=== PATIENT | female | born 1940 | race Caucasian/White ===

== ENCOUNTER 2018-06-07 17:18 | Inpatient (IN) | payer OTHER ==
[~2018-06-07] VITALS: Ht 162.6 cm; Wt 64.0 kg
[~2018-06-07 17:18] MED LIST: ACETAMINOPHEN325 M1 PO; ASPIR 8181 MG PO; ATENOLOL50 MG PO; BUPROPION XL150 MG PO; CLOPIDOGREL75 MG PO; FAMOTIDINE20 MG PO; FLUOXETINE HCL20 M1 PO; GEMFIBROZIL600 MG PO; HYDROCHLOROTH12.5 M1 PO; HYDROCHLOROTHIA25 MG PO; MULTIVITAMINS1 EAC7 PO; NAMENDA XR PO; NAMENDA10 MG PO; PANTOPRAZOLE SO40 MG PO; PRAVASTATIN SOD40 MG PO; RIVASTIGMINE PATCH; SIMVASTATIN20 MG PO; Tylenol PO; Vit B 12 PO
[2018-06-07] MEDS ORDERED: SODIUM CHLORIDE 0.9% 1000ML 1,000 ML IV ONE ×2 (18:45→19:45)
[2018-06-07 18:51] LABS: BASOPHILS # (AUTO) 0.1 (0.0-0.1); BASOPHILS % 0.2 % (0.0-1.0); HEMATOCRIT 39.8 % (34.2-44.1); HEMOGLOBIN 12.5 g/dL (12.0-16.0); LYMPHOCYTES # (AUTO) 1.2 (1.0-3.2); LYMPHOCYTES % 5.1 % (18.0-39.1); MEAN CORPUSCULAR HEMOGLOBIN 26.1 pg (28-32); MEAN CORPUSCULAR HGB CONC 31.4 g/dL (31-35); MEAN CORPUSCULAR VOLUME 83.1 fL (81-99); MONOCYTES % 8.4 % (4.4-11.3); NEUTROPHILS # (AUTO) 20.3 (2.1-6.9); NEUTROPHILS % 84.6 % (38.7-80.0); PLATELET COUNT 260 x10e3/uL (140-360); RED BLOOD COUNT 4.79 x10e6/uL (3.6-5.1); RED CELL DISTRIBUTION WIDTH 16.6 % (11.7-14.4)
[2018-06-07 19:06] LABS: ALBUMIN 3.3 g/dL (3.5-5.0); ALBUMIN/GLOBULIN RATIO 0.6 (0.8-2.0); ANION GAP 20.1 mmol/L (8-16); CALCIUM 9.5 mg/dL (8.4-10.2); CREATININE, SERUM 1.13 mg/dL (0.57-1.11); POTASSIUM 4.1 mmol/L (3.5-5.1)
[2018-06-07] MEDS ORDERED: CEFTRIAXONE SOD 1 GM VIAL IM ONE (20:30)
[2018-06-07 21:00] LABS: BAND NEUTROPHILS % (MANUAL) 3 %; LYMPHOCYTES % (MANUAL) 6 % (19-48); MONOCYTES % (MANUAL) 5 % (3.4-9.0); NEUTROPHILS % (MANUAL) 86 % (40-74)
[2018-06-07 21:01] LABS: PLATELET ESTIMATE ADEQUATE; PLATELET MORPHOLOGY COMMENT NORMAL; RBC MORPHOLOGY COMMENT NORMAL
[2018-06-07] MEDS ORDERED: ALENDRONATE SOD70 MG PO (21:07)
[2018-06-07 21:12] LABS: BILIRUBIN,URINE NEGATIVE (NEGATIVE); CLARITY,URINE CLOUDY (CLEAR); COLOR,URINE YELLOW (YELLOW); KETONES,URINE NEGATIVE (NEGATIVE); LEUKOCYTE ESTERASE ,URINE 2+ (NEGATIVE); NITRITE,URINE POSITIVE (NEGATIVE); PROTEIN,URINE DIPSTICK 1+ (NEGATIVE); URINE UROBILINOGEN 0.2 mg/dL (0.2 - 1)
--- NOTE | 2018-06-07 21:21 | Diagnostic Imaging Report ---
CHEST SINGLE (PORTABLE), 06/07/2018 8:53 PM Technique: CHEST SINGLE (PORTABLE) Comparison: 09/02/2017 Clinical history: Weakness, nausea vomiting Findings: Stable prominent cardiomediastinal silhouette. No consolidation or edema. No effusion or pneumothorax. Scoliotic curvature of the spine. Impression: 1. Lines/Tubes: None 2. No acute abnormality. Signed by: Dr Sherri Chin MD on 06/07/2018 9:18 PM
[2018-06-07 21:32] LABS: WBC,URINE (MAN) >50 /HPF (0-5)
[2018-06-07 21:33] LABS: BACTERIA,URINE MANY /HPF; RBC,URINE 0-5 /HPF (0-5)
[2018-06-07 21:34] LABS: EPITHELIAL CELLS,URINE RARE /LPF
[2018-06-07] MEDS ORDERED: ACETAMINOPHEN 325 MG TAB PO PRN (21:45)
[2018-06-07 22:03] LABS: CREATINE KINASE MB 0.5 ng/mL (0-5.0)
[2018-06-07] MEDS: SODIUM CHLORIDE 0.9% 1000ML 1,000 ML IV SCH (22:12)
[2018-06-07] MEDS ORDERED: ACETAMINOPHEN 1000 MG/100 ML 100 ML IV ONE (22:23)
[2018-06-07] MEDS: ONDANSETRON HCL INJ 2 MG/ML VIAL IV PRN (22:25)
[2018-06-08] MEDS ORDERED: ACETAMINOPHEN 1000 MG/100 ML IV SCH
[2018-06-08 03:42] LABS: CREATINE KINASE MB 1.7 ng/mL (0-5.0)
[2018-06-08] MEDS ORDERED: ACETAMINOPHEN 1000 MG/100 ML IV PRN (06:00)
--- NOTE | 2018-06-08 06:08 | Diagnostic Imaging Report ---
CHEST SINGLE (PORTABLE), 06/08/2018 7:00 AM Technique: CHEST SINGLE (PORTABLE) Comparison: Previous day Clinical history: Weakness Findings: Stable prominent cardiomediastinal silhouette. No consolidation or edema. No effusion or pneumothorax. Scoliotic curvature of the spine. Impression: 1. Lines/Tubes: None 2. No acute abnormality. Signed by: Dr Sherri Chin MD on 06/08/2018 6:04 AM
[2018-06-08 06:09] LABS: BASOPHILS % 0.1 % (0.0-1.0); HEMATOCRIT 31.6 % (34.2-44.1); LYMPHOCYTES # (AUTO) 1.5 (1.0-3.2); LYMPHOCYTES % 6.6 % (18.0-39.1); MEAN CORPUSCULAR HEMOGLOBIN 26.4 pg (28-32); MEAN CORPUSCULAR HGB CONC 31.6 g/dL (31-35); MEAN CORPUSCULAR VOLUME 83.4 fL (81-99); MONOCYTES # (AUTO) 1.7 (0.2-0.8); MONOCYTES % 7.7 % (4.4-11.3); NEUTROPHILS # (AUTO) 18.7 (2.1-6.9); NEUTROPHILS % 84.3 % (38.7-80.0); PLATELET COUNT 186 x10e3/uL (140-360); RED BLOOD COUNT 3.79 x10e6/uL (3.6-5.1); RED CELL DISTRIBUTION WIDTH 16.9 % (11.7-14.4)
[2018-06-08 06:39] LABS: ANION GAP 14.5 mmol/L (8-16); CREATININE, SERUM 1.12 mg/dL (0.57-1.11); MAGNESIUM 1.2 MG/DL (1.3-2.1); POTASSIUM 3.5 mmol/L (3.5-5.1)
[2018-06-08] MEDS: CEFTRIAXONE SOD 1 GM VIAL IV SCH ×2 (07:51→20:00)
[2018-06-08 08:05] LABS: BAND NEUTROPHILS % (MANUAL) 4 %; LYMPHOCYTES % (MANUAL) 8 % (19-48); METAMYELOCYTES % (MANUAL) 1 % (0-0); MONOCYTES % (MANUAL) 4 % (3.4-9.0); NEUTROPHILS % (MANUAL) 82 % (40-74)
[2018-06-08 08:07] LABS: PLATELET ESTIMATE ADEQUATE; PLATELET MORPHOLOGY COMMENT NORMAL; RBC MORPHOLOGY COMMENT NORMAL
[2018-06-08] MEDS ORDERED: ASPIRIN 81 MG CHEW TAB PO ONE (08:30)
[2018-06-08] MEDS: SODIUM CHLORIDE 0.9% 1000ML 1,000 ML IV SCH (10:44)
[2018-06-08 11:14] LABS: CREATINE KINASE MB 2.8 ng/mL (0-5.0)
[2018-06-08] MEDS ORDERED: MAGNESIUM SULFATE 2GM/50ML IV ONE (13:30)
[2018-06-08] MEDS ORDERED: MAGNESIUM SULFATE 2GM/50ML 50 ML IV ONE (13:45)
--- NOTE | 2018-06-08 15:13 | Diagnostic Imaging Report ---
EXAMINATION: CT of the abdomen and pelvis without contrast. TECHNIQUE: Spiral CT images of the abdomen and pelvis were performed from the lung bases to the lesser trochanters. No intravenous contrast was given per physician's request. Coronal and sagittal reformatted images were obtained. COMPARISON: None. CLINICAL HISTORY:UTI, urosepsis DISCUSSION: ABSENCE OF INTRAVENOUS CONTRAST DECREASES SENSITIVITY FOR DETECTION OF FOCAL LESIONS AND VASCULAR PATHOLOGY. ABDOMEN/PELVIS: LOWER THORAX: Minimal right lower lobe atelectatic changes. Atherosclerotic calcification of the thoracic aorta. Small hiatal hernia. HEPATOBILIARY: No focal hepatic lesions. No intra or extrahepatic biliary ductal dilation. GALLBLADDER: No radio-opaque stones or sludge. No wall thickening. SPLEEN: No splenomegaly. PANCREAS: No focal masses or ductal dilatation. Moderate fatty replacement, predominantly involving the neck and head ADRENALS: Mild thickening of bilateral adrenal glands. No focal lesion. KIDNEYS/URETERS: No renal or ureteral calculi, hydronephrosis or obstruction. Mild bilateral perinephric stranding. No contour abnormalities. PELVIC ORGANS/BLADDER: Bladder is unremarkable. Uterus is absent. No adnexal masses. Multiple pelvic phleboliths. PERITONEUM/RETROPERITONEUM: No free air or fluid. LYMPH NODES: Mildly enlarged portacaval lymph node, which measures approximately 1.2 cm in short axis (series 3, image 48). Mildly prominent subcentimeter gastrohepatic ligament node (series 3, image 36). Several mildly prominent, although subcentimeter lymph nodes are noted in the peripancreatic region (example series 3, image 55. No retroperitoneal, pelvic or inguinal adenopathy. VESSELS: Atherosclerotic calcification of the abdominal aorta and iliac vessels. GI TRACT: No bowel dilation or evidence of obstruction. No pericolonic inflammatory changes. Descending and sigmoid colon diverticulosis, without diverticulitis. Greater portion of the small bowel is located in the right abdomen, suggesting malrotation. BONES AND SOFT TISSUES: No aggressive lytic lesions. Marked S-shaped scoliosis of the thoracolumbar spine, with associated degenerative changes. No lytic lesions. Bilateral gluteal region calcified injection granulomas. IMPRESSION: 1. No renal or ureteral calculi, hydronephrosis or obstruction. Mild bilateral perinephric stranding, which is nonspecific. Unable to evaluate for pyelonephritis given the lack of intravenous contrast. 2. Bladder has an unremarkable noncontrast appearance. 3. Mildly enlarged portacaval lymph node, which is nonspecific. There are other mildly prominent, although subcentimeter lymph nodes in the peripancreatic and gastrohepatic ligament areas. These may be reactive secondary to prior inflammation or infection. No acute peripancreatic inflammatory changes are noted. Signed by: Dr. Jhonathan Castellanos M.D. on 06/08/2018 3:10 PM
[2018-06-08 15:20] LABS: BASOPHILS # (AUTO) 0.1 (0.0-0.1); BASOPHILS % 0.4 % (0.0-1.0); EOSINOPHILS # (AUTO) 0.2 (0.0-0.4); EOSINOPHILS % 0.8 % (0.0-6.0); HEMATOCRIT 30.7 % (34.2-44.1); HEMOGLOBIN 9.5 g/dL (12.0-16.0); LYMPHOCYTES # (AUTO) 1.9 (1.0-3.2); LYMPHOCYTES % 10.5 % (18.0-39.1); MEAN CORPUSCULAR HEMOGLOBIN 26.2 pg (28-32); MEAN CORPUSCULAR HGB CONC 30.9 g/dL (31-35); MEAN CORPUSCULAR VOLUME 84.8 fL (81-99); MONOCYTES # (AUTO) 1.4 (0.2-0.8); NEUTROPHILS # (AUTO) 14.3 (2.1-6.9); NEUTROPHILS % 79.7 % (38.7-80.0); PLATELET COUNT 149 x10e3/uL (140-360); RED BLOOD COUNT 3.62 x10e6/uL (3.6-5.1); RED CELL DISTRIBUTION WIDTH 17.1 % (11.7-14.4)
[2018-06-08 15:23] VITALS: BP 138/78
[2018-06-08 15:36] VITALS: BP 138/78
[2018-06-08 15:40] LABS: ALBUMIN 2.3 g/dL (3.5-5.0); ALBUMIN/GLOBULIN RATIO 0.6 (0.8-2.0); ANION GAP 12.2 mmol/L (8-16); CALCIUM 7.8 mg/dL (8.4-10.2); CREATININE, SERUM 1.06 mg/dL (0.57-1.11); POTASSIUM 3.2 mmol/L (3.5-5.1)
[2018-06-08 15:55] LABS: ANISOCYTOSIS SLIGHT; LYMPHOCYTES % (MANUAL) 13 % (19-48); MONOCYTES % (MANUAL) 8 % (3.4-9.0); NEUTROPHILS % (MANUAL) 79 % (40-74); PLATELET ESTIMATE ADEQUATE; PLATELET MORPHOLOGY COMMENT NORMAL; RBC MORPHOLOGY COMMENT NORMAL
[2018-06-08 16:00] VITALS: BP 139/73
[2018-06-08] MEDS: MEMANTINE 10 MG TAB PO SCH (17:00)
[2018-06-08 20:00] VITALS: BP 124/60
[2018-06-09] VITALS (8 sets, daily range): BP systolic 152–187; BP diastolic 69–98
[2018-06-09] MEDS: ONDANSETRON HCL INJ 2 MG/ML VIAL IV PRN ×4 (01:42→18:41)
[2018-06-09 05:07] LABS: BASOPHILS # (AUTO) 0.1 (0.0-0.1); BASOPHILS % 0.5 % (0.0-1.0); EOSINOPHILS # (AUTO) 0.2 (0.0-0.4); EOSINOPHILS % 1.4 % (0.0-6.0); HEMATOCRIT 32.7 % (34.2-44.1); HEMOGLOBIN 10.4 g/dL (12.0-16.0); LYMPHOCYTES # (AUTO) 1.2 (1.0-3.2); LYMPHOCYTES % 7.4 % (18.0-39.1); MEAN CORPUSCULAR HEMOGLOBIN 26.1 pg (28-32); MEAN CORPUSCULAR HGB CONC 31.8 g/dL (31-35); MEAN CORPUSCULAR VOLUME 82.2 fL (81-99); MONOCYTES # (AUTO) 1.3 (0.2-0.8); MONOCYTES % 8.4 % (4.4-11.3); NEUTROPHILS # (AUTO) 12.7 (2.1-6.9); NEUTROPHILS % 81.5 % (38.7-80.0); PLATELET COUNT 167 x10e3/uL (140-360); RED BLOOD COUNT 3.98 x10e6/uL (3.6-5.1)
[2018-06-09 05:25] LABS: ANION GAP 14.3 mmol/L (8-16); BLOOD UREA NITROGEN 21 mg/dL (7-26); BUN/CREATININE RATIO 25 (6-25); CALCIUM 8.2 mg/dL (8.4-10.2); CARBON DIOXIDE 22 mmol/L (22-29); CHLORIDE 106 mmol/L (98-107); CREATININE, SERUM 0.83 mg/dL (0.57-1.11); EST GLOMERULAR FILTRATION RATE > 60 ML/MIN (60-); GLUCOSE 121 mg/dL (74-118); POTASSIUM 3.3 mmol/L (3.5-5.1); SODIUM 139 mmol/L (136-145)
[2018-06-09 05:30] LABS: MAGNESIUM 1.4 MG/DL (1.3-2.1)
[2018-06-09 05:56] LABS: THYROID STIMULATING HORMONE 1.069 uIU/mL (0.350-4.940)
[2018-06-09 08:00] LABS: FOLATE 16.4 ng/mL (7.0-15.4)
[2018-06-09] MEDS: CEFTRIAXONE SOD 1 GM VIAL IV SCH ×2 (08:00→19:53)
[2018-06-09] MEDS: SODIUM CHLORIDE 0.9% 1000ML 1,000 ML IV SCH (08:49)
[2018-06-09] MEDS: CLOPIDOGREL BISULFATE 75 MG TAB PO SCH (09:00)
[2018-06-09] MEDS: PANTOPRAZOLE SOD 40 MG TABEC PO SCH (09:00)
[2018-06-09] MEDS: FLUOXETINE HCL 20 MG CAP PO SCH (09:00)
[2018-06-09] MEDS: MEMANTINE 10 MG TAB PO SCH ×2 (09:00→17:00)
[2018-06-09] MEDS: FAMOTIDINE 20 MG/2 ML VIAL IV SCH ×2 (10:30→16:34)
[2018-06-09] MEDS ORDERED: MAGNESIUM SULFATE 2GM/50ML IV ONE (10:30)
[2018-06-09] MEDS ORDERED: SOD CHL 0.45%/POT CHL 20MEQ 1,000 ML IV SCH (10:30)
[2018-06-09] MEDS: ACETAMINOPHEN 325 MG TAB PO PRN ×2 (10:34→16:34)
[2018-06-09] MEDS: MAGNESIUM/ALUMINUM/SIMETHICONE 30 ML UDC PO PRN ×2 (10:39→18:41)
[2018-06-09] MEDS ORDERED: MAGNESIUM SULFATE 2GM/50ML 50 ML IV ONE (10:45)
[2018-06-09] MEDS ORDERED: ATENOLOL 50 MG TAB PO ONE (10:50)
--- NOTE | 2018-06-09 11:03 | History and Physical ---
Patient is admitted on June 08, 2018. CHIEF COMPLAINT: Nausea, vomiting, abdominal pain, fever. HISTORY: Patient is a 78-year-old female came in with some confusion. The patient has nausea and vomiting for the past few days prior to her presentation. She does have urinary tract infection. Patient's blood pressure was low. She did have a temperature of 102. The patient is otherwise stable. The urinalysis is showing that she has 1+ blood, positive nitrite, 2+ leukocyte esterase, and WBC of greater than 50 along with many bacteria. Her white cell count was also elevated at 23.9 as well. Patient admitted, Rocephin is initiated. The patient was, however, stable. PAST MEDICAL HISTORY: Osteoarthritis. Reflux, hypertension, osteoporosis, depression, anxiety disorder, mild dementia, dyslipidemia. PAST SURGICAL HISTORY: 1. Left ankle surgery. 2. Hysterectomy. SOCIAL HISTORY: Patient lives at home with her family. ALLERGIES: TO NO KNOWN ALLERGY. HOME MEDICATIONS: List reviewed. REVIEW OF SYSTEMS: As mentioned above. PHYSICAL EXAMINATION: VITAL SIGNS: Temperature is 99, blood pressure 174/79, pulse rate 86, respirations 18. GENERAL: The patient is not in acute distress, she is awake. HEENT: Normocephalic, atraumatic. Sclerae anicteric. NECK: Supple grossly. PULMONARY: Diminished breath sounds. CARDIOVASCULAR: S1, S2. Regular rate and rhythm. ABDOMEN: Soft, nontender, non-distention. EXTREMITIES: No cyanosis or edema. NEURO: No gross focal deficit, although the patient is confused. LABORATORY: WBC is 23.9, hemoglobin is 12.5, hematocrit 39.8, platelets is 260,000. Sodium is 138, potassium 3.2, chloride 109, bicarb is 20, BUN is 23, creatinine 1.0, glucose is 108. TSH is 1.06. Folate is 16, B12 is greater than 2000. Liver enzymes unremarkable. Magnesium is 1.4. IMPRESSION: 1. Sepsis without shock. Patient's blood pressure responded to intravenous bolus. 2. Altered mental status secondary to the above. This is consistent with urinary tract infection with infected encephalopathy. 3. Baseline dementia. 4. Fever and leukocytosis secondary to the above. PLAN: Continue with IV antibiotics. Supportive measures. Home medications. Replace electrolytes. Check blood culture and urine culture. Job#: [id number]
[2018-06-10] VITALS (7 sets, daily range): BP systolic 136–177; BP diastolic 82–113
[2018-06-10 04:49] LABS: BASOPHILS # (AUTO) 0.1 (0.0-0.1); BASOPHILS % 0.4 % (0.0-1.0); EOSINOPHILS # (AUTO) 0.1 (0.0-0.4); EOSINOPHILS % 0.4 % (0.0-6.0); HEMATOCRIT 33.3 % (34.2-44.1); HEMOGLOBIN 10.7 g/dL (12.0-16.0); LYMPHOCYTES # (AUTO) 1.2 (1.0-3.2); LYMPHOCYTES % 9.7 % (18.0-39.1); MEAN CORPUSCULAR HGB CONC 32.1 g/dL (31-35); MEAN CORPUSCULAR VOLUME 80.8 fL (81-99); MONOCYTES # (AUTO) 1.1 (0.2-0.8); MONOCYTES % 9.2 % (4.4-11.3); NEUTROPHILS # (AUTO) 9.7 (2.1-6.9); NEUTROPHILS % 79.8 % (38.7-80.0); PLATELET COUNT 188 x10e3/uL (140-360); RED BLOOD COUNT 4.12 x10e6/uL (3.6-5.1)
[2018-06-10 05:07] LABS: ANION GAP 15.3 mmol/L (8-16); BLOOD UREA NITROGEN 14 mg/dL (7-26); BUN/CREATININE RATIO 19 (6-25); CALCIUM 8.4 mg/dL (8.4-10.2); CARBON DIOXIDE 24 mmol/L (22-29); CHLORIDE 100 mmol/L (98-107); CREATININE, SERUM 0.75 mg/dL (0.57-1.11); EST GLOMERULAR FILTRATION RATE > 60 ML/MIN (60-); GLUCOSE 109 mg/dL (74-118); POTASSIUM 3.3 mmol/L (3.5-5.1); SODIUM 136 mmol/L (136-145)
[2018-06-10] MEDS: CEFTRIAXONE SOD 1 GM VIAL IV SCH ×2 (08:54→21:05)
[2018-06-10] MEDS: FAMOTIDINE 20 MG/2 ML VIAL IV SCH (08:54)
[2018-06-10] MEDS: CLOPIDOGREL BISULFATE 75 MG TAB PO SCH (08:54)
[2018-06-10] MEDS: FLUOXETINE HCL 20 MG CAP PO SCH (08:54)
[2018-06-10] MEDS: MEMANTINE 10 MG TAB PO SCH ×2 (08:54→17:00)
[2018-06-10] MEDS: PANTOPRAZOLE SOD 40 MG TABEC PO SCH (08:54)
[2018-06-10] MEDS: ATENOLOL 50 MG TAB PO SCH (08:55)
[2018-06-10] MEDS ORDERED: POTASSIUM CHLORIDE 10 MEQ TABCR PO NR (10:00)
[2018-06-10] MEDS: AMLODIPINE BESYLATE 5 MG TAB PO SCH (13:28)
[2018-06-10] MEDS: FAMOTIDINE 20 MG TAB PO SCH (17:00)
[2018-06-11] VITALS (8 sets, daily range): BP systolic 138–164; BP diastolic 68–97
[2018-06-11 05:05] LABS: BASOPHILS # (AUTO) 0.1 (0.0-0.1); BASOPHILS % 0.6 % (0.0-1.0); EOSINOPHILS # (AUTO) 0.2 (0.0-0.4); EOSINOPHILS % 2.1 % (0.0-6.0); HEMATOCRIT 32.7 % (34.2-44.1); HEMOGLOBIN 10.5 g/dL (12.0-16.0); LYMPHOCYTES # (AUTO) 2.3 (1.0-3.2); LYMPHOCYTES % 25.7 % (18.0-39.1); MEAN CORPUSCULAR HEMOGLOBIN 25.9 pg (28-32); MEAN CORPUSCULAR HGB CONC 32.1 g/dL (31-35); MEAN CORPUSCULAR VOLUME 80.7 fL (81-99); MONOCYTES # (AUTO) 1.5 (0.2-0.8); MONOCYTES % 16.6 % (4.4-11.3); NEUTROPHILS # (AUTO) 4.8 (2.1-6.9); NEUTROPHILS % 54.3 % (38.7-80.0); PLATELET COUNT 216 x10e3/uL (140-360); RED BLOOD COUNT 4.05 x10e6/uL (3.6-5.1); RED CELL DISTRIBUTION WIDTH 16.9 % (11.7-14.4)
[2018-06-11 05:35] LABS: ANION GAP 13.5 mmol/L (8-16); BLOOD UREA NITROGEN 21 mg/dL (7-26); BUN/CREATININE RATIO 23 (6-25); CALCIUM 8.8 mg/dL (8.4-10.2); CARBON DIOXIDE 25 mmol/L (22-29); CHLORIDE 99 mmol/L (98-107); EST GLOMERULAR FILTRATION RATE > 60 ML/MIN (60-); GLUCOSE 100 mg/dL (74-118); POTASSIUM 3.5 mmol/L (3.5-5.1); SODIUM 134 mmol/L (136-145)
[2018-06-11] MEDS: AMLODIPINE BESYLATE 5 MG TAB PO SCH (05:55)
[2018-06-11] MEDS: MEMANTINE 10 MG TAB PO SCH ×2 (08:35→16:20)
[2018-06-11] MEDS: PANTOPRAZOLE SOD 40 MG TABEC PO SCH (08:35)
[2018-06-11] MEDS: FAMOTIDINE 20 MG TAB PO SCH ×2 (08:35→16:20)
[2018-06-11] MEDS: ATENOLOL 50 MG TAB PO SCH (08:35)
[2018-06-11] MEDS: CLOPIDOGREL BISULFATE 75 MG TAB PO SCH (08:35)
[2018-06-11] MEDS: FLUOXETINE HCL 20 MG CAP PO SCH (08:35)
[2018-06-11] MEDS: CEFTRIAXONE SOD 1 GM VIAL IV SCH ×2 (08:35→20:15)
--- NOTE | 2018-06-11 18:34 | Diagnostic Imaging Report ---
EXAMINATION: PA and lateral views of the chest. COMPARISON: AP chest 09/02/2017 CLINICAL HISTORY: Cough, urosepsis DISCUSSION: Lines/tubes: None. Lungs: The lungs are well inflated and grossly clear. There is no evidence of pneumonia or pulmonary edema. Pleura: There is no pleural effusion or pneumothorax. Heart and mediastinum: Enlarged cardiac silhouette. Pulmonary vasculature is normal. Bones and soft tissues: No acute bony abnormalities. Degenerative changes in the thoracic spine with associated dextroscoliosis IMPRESSION: Enlarged cardiac silhouette, without acute cardiopulmonary abnormalities. Signed by: Dr. Jhonathan Castellanos M.D. on 06/11/2018 6:31 PM
[2018-06-11] MEDS: ACETAMINOPHEN 325 MG TAB PO PRN (20:31)
[2018-06-12] VITALS (7 sets, daily range): BP systolic 107–155; BP diastolic 55–81
[2018-06-12] MEDS: FLUOXETINE HCL 20 MG CAP PO SCH (08:25)
[2018-06-12] MEDS: CEFTRIAXONE SOD 1 GM VIAL IV SCH ×2 (08:25→20:23)
[2018-06-12] MEDS: FAMOTIDINE 20 MG TAB PO SCH ×2 (08:25→17:06)
[2018-06-12] MEDS: CLOPIDOGREL BISULFATE 75 MG TAB PO SCH (08:25)
[2018-06-12] MEDS: PANTOPRAZOLE SOD 40 MG TABEC PO SCH (08:25)
[2018-06-12] MEDS: ATENOLOL 50 MG TAB PO SCH (08:26)
[2018-06-12] MEDS: AMLODIPINE BESYLATE 5 MG TAB PO SCH (08:26)
[2018-06-12] MEDS: MEMANTINE 10 MG TAB PO SCH ×2 (08:26→17:06)
[2018-06-12] MEDS ORDERED: BENZONATATE 100 MG CAP PO PRN (09:45)
[2018-06-12] MEDS: LORATADINE 10 MG TAB PO SCH (11:01)
[2018-06-13] VITALS (7 sets, daily range): BP systolic 124–172; BP diastolic 58–97
[2018-06-13 04:54] LABS: BASOPHILS # (AUTO) 0.1 (0.0-0.1); BASOPHILS % 0.8 % (0.0-1.0); EOSINOPHILS # (AUTO) 0.4 (0.0-0.4); EOSINOPHILS % 3.8 % (0.0-6.0); HEMATOCRIT 33.2 % (34.2-44.1); HEMOGLOBIN 10.7 g/dL (12.0-16.0); LYMPHOCYTES # (AUTO) 2.8 (1.0-3.2); LYMPHOCYTES % 26.5 % (18.0-39.1); MEAN CORPUSCULAR HEMOGLOBIN 26.2 pg (28-32); MEAN CORPUSCULAR HGB CONC 32.2 g/dL (31-35); MEAN CORPUSCULAR VOLUME 81.2 fL (81-99); MONOCYTES # (AUTO) 1.5 (0.2-0.8); MONOCYTES % 13.9 % (4.4-11.3); NEUTROPHILS # (AUTO) 5.6 (2.1-6.9); NEUTROPHILS % 52.7 % (38.7-80.0); PLATELET COUNT 271 x10e3/uL (140-360); RED BLOOD COUNT 4.09 x10e6/uL (3.6-5.1)
[2018-06-13 05:15] LABS: ANION GAP 16.2 mmol/L (8-16); BLOOD UREA NITROGEN 19 mg/dL (7-26); BUN/CREATININE RATIO 23 (6-25); CALCIUM 9.1 mg/dL (8.4-10.2); CARBON DIOXIDE 25 mmol/L (22-29); CHLORIDE 98 mmol/L (98-107); CREATININE, SERUM 0.81 mg/dL (0.57-1.11); EST GLOMERULAR FILTRATION RATE > 60 ML/MIN (60-); GLUCOSE 91 mg/dL (74-118); POTASSIUM 3.2 mmol/L (3.5-5.1); SODIUM 136 mmol/L (136-145)
[2018-06-13 07:48] LABS: ANISOCYTOSIS SLIGHT; EOSINOPHILS % (MANUAL) 4 % (0-7); HYPOCHROMASIA SLIGHT; LYMPHOCYTES % (MANUAL) 29 % (19-48); MONOCYTES % (MANUAL) 10 % (3.4-9.0); MYELOCYTES % (MANUAL) 3 % (0-0); NEUTROPHILS % (MANUAL) 48 % (40-74); RBC MORPHOLOGY COMMENT NORMAL
[2018-06-13 07:49] LABS: PLATELET ESTIMATE ADEQUATE; PLATELET MORPHOLOGY COMMENT NORMAL
[2018-06-13] MEDS: LORATADINE 10 MG TAB PO SCH (08:12)
[2018-06-13] MEDS: FLUOXETINE HCL 20 MG CAP PO SCH (08:12)
[2018-06-13] MEDS: CLOPIDOGREL BISULFATE 75 MG TAB PO SCH (08:12)
[2018-06-13] MEDS: ATENOLOL 50 MG TAB PO SCH (08:12)
[2018-06-13] MEDS: PANTOPRAZOLE SOD 40 MG TABEC PO SCH (08:12)
[2018-06-13] MEDS: MEMANTINE 10 MG TAB PO SCH ×2 (08:12→15:48)
[2018-06-13] MEDS: AMLODIPINE BESYLATE 5 MG TAB PO SCH (08:12)
[2018-06-13] MEDS: FAMOTIDINE 20 MG TAB PO SCH ×2 (08:13→15:48)
[2018-06-13] MEDS: CEFTRIAXONE SOD 1 GM VIAL IV SCH (08:13)
[2018-06-13] MEDS ORDERED: POTASSIUM CHLORIDE 20 MEQ TAB CR PO ONE (09:45)
[2018-06-13] MEDS: CEPHALEXIN 500 MG CAP PO SCH ×3 (10:30→21:39)
[2018-06-13] MEDS: AMLODIPINE BESYLATE 10 MG TAB PO SCH (10:31)
[2018-06-14 01:03] VITALS: BP 164/83
[2018-06-14] MEDS: CEPHALEXIN 500 MG CAP PO SCH (05:47)
[2018-06-14 06:53] VITALS: BP 164/74
[2018-06-14 08:00] VITALS: BP 135/77
[2018-06-14] MEDS: FAMOTIDINE 20 MG TAB PO SCH (09:05)
[2018-06-14] MEDS: LORATADINE 10 MG TAB PO SCH (09:05)
[2018-06-14] MEDS: MEMANTINE 10 MG TAB PO SCH (09:05)
[2018-06-14] MEDS: PANTOPRAZOLE SOD 40 MG TABEC PO SCH (09:06)
[2018-06-14] MEDS: ATENOLOL 50 MG TAB PO SCH (09:06)
[2018-06-14] MEDS: CLOPIDOGREL BISULFATE 75 MG TAB PO SCH (09:06)
[2018-06-14] MEDS: AMLODIPINE BESYLATE 10 MG TAB PO SCH (09:06)
[2018-06-14] MEDS: FLUOXETINE HCL 20 MG CAP PO SCH (09:06)
[2018-06-14 12:00] VITALS: BP 118/69
--- NOTE | 2018-06-17 03:33 | Discharge Summary ---
PRIMARY CARE PHYSICIAN: Dr. Oracio Bowilng. FINAL DIAGNOSES 1. Infected encephalopathy associated with urinary tract infection, associated with bacteremia on admission. 2. Sepsis without shock. 3. Bacteremia. 4. Escherichia coli infection from urinary tract infection. SUMMARY: This 78-year-old female came in lethargic and confused. Patient had fever and leukocytosis. Patient was given antibiotics Rocephin 1 gram q.12h. and blood culture obtained. The patient did not receive urine culture prior to her antibiotics. She did however have blood culture x2 sets. The patient basically has E. coli in the blood culture. It is sensitive to multiple antibiotics. Patient placed on Rocephin twice a day. She continued with IV fluids for rehydration. Patient subsequently much improved. Her mental status much improved on day 2 after 24 hours of IV antibiotics. There was no shock. The patient continued with treatment. She did better. She was back to her baseline. The patient does have baseline dementia, mild but with progression. The patient is ambulatory with physical therapy. The family wanted to place the patient in the [facility] eventually and requested skilled facility, which has subsequently been approved by insurance. The patient will be transferred to the skilled facility and continued with oral antibiotics Keflex 500 mg 3 times a day for 5 days. Patient will continue her other usual home medication. She was stable. Leukocytosis resolved. No fever over 48 hours. Patient now able to tolerate all her diet. Other workup including complaint of dysphagia was negative. Patient was stable, discharged to skilled facility, will continue with her physical therapy and subsequent management for possible placement. Job#: [id number] BILLIE
== END 2018-06-14 12:30 | disposition home or self-care (01) | DRG 871 ==
LOC: ER 17:18 → ERHOLD 21:35 → MED/SURG2 06-08 14:33
PROVIDERS: ADMIT Internal Medicine; ATTEND Internal Medicine
DX: A41.51 Sepsis due to Escherichia coli [E. coli] (principal); G93.41 Metabolic encephalopathy; F03.90 Unspecified dementia, unspecified severity, without behavioral disturbance, psychotic disturbance, mood disturbance, and anxiety; N30.91 Cystitis, unspecified with hematuria; R11.2 Nausea with vomiting, unspecified; M19.90 Unspecified osteoarthritis, unspecified site; K21.9 Gastro-esophageal reflux disease without esophagitis; M81.0 Age-related osteoporosis without current pathological fracture; E78.5 Hyperlipidemia, unspecified
CPT/HCPCS: 36415; 71045; 71046; 74176; 80048; 80053; 81001; 82550; 82553; 82607; 82746; 83605; 83735; 84443; 84484; 85025; 87040; 87071; 87186; 87205; 93005; 97139; 99284; J0696; J2405; J7030

== ENCOUNTER 2018-11-12 14:12 | Inpatient (IN) | payer MEDICARE, OTHER ==
[~2018-11-12] VITALS: Ht 165.1 cm; Wt 63.5 kg
[~2018-11-12 14:12] MED LIST changes: +ALENDRONATE SOD70 MG PO
--- OUTSIDE RECORDS SUMMARY | 2018-11-12 14:16 | XMS REPORT | Summary of Care ---
Author Author Michelle Sarah R.N. Unknown Address Unknown Phone Unavailable Care Team Providers Care Design Engineer Products Name Role Phone MARK P.A., OTF Unavailable Unavailable BABS N.PDaiana, GODWIN Unavailable Unavailable CONOR Childs, ALDEN Unavailable Unavailable NICHO GUTIERREZ [place], [place] MUÑOZ Unavailable Unavailable NICHO Childs, LOS Warner Unavailable Sherry GUTIERREZ, Mahin Unavailable Unavailable Unavailable Unavailable Functional Status Name Dates Details Functional status health issues are not documented Status: Name Dates Details Cognitive status health issues are not documented Status: Problems Name Dates Details Gait disturbance (781.2, R26.9) Status: Active Internal hemorrhoids (455.0, K64.8) Status: Active Seborrheic keratosis (702.19, L82.1) Status: Active Tinnitus (388.30, H93.19) Status: Active Mass of left side of neck (784.2, R22.1) Status: Active Need for pneumococcal vaccination (V03.82, Z23) Status: Active Knee pain, left (719.46, M25.562) Status: Active Acute bronchitis (466.0, J20.9) Status: Active Right flank pain (789.09, R10.9) Status: Active Syncope (780.2, R55) Status: Active Sciatica of right side (724.3, M54.31) Status: Active Weakness generalized (780.79, R53.1) Status: Active Skin laceration (879.8) Status: Active Hiatal hernia (553.3, K44.9) Status: Active Frequent falls (V15.88, R29.6) Status: Active Encounter for mini-mental status examination Status: Active Depression screening (V79.0, Z13.31) Status: Active Need for influenza vaccination (V04.81, Z23) Status: Active Anemia (285.9, D64.9) Status: Active Elevated LFTs (790.6, R94.5) Status: Active Fatty liver (571.8, K76.0) Status: Active Acute left ankle pain (719.47, M25.572) Status: Active Medial malleolar fracture (824.0, S82.53XA) Status: Active Cyst, eyelid (374.84, H02.829) Status: Active Abnormal electrocardiogram (794.31, R94.31) Status: Active Osteoarthritis (715.90, M19.90) Status: Active At high risk for falls (V15.88, Z91.81) Status: Active Leg fracture, left (827.0, S82.92XA) Status: Active Advance directive discussed with patient (V65.49, Z71.89) Status: Active Antiplatelet or antithrombotic long-term use (V58.63, Z79.02) Status: Active Cataract (366.9, H26.9) Status: Active Diverticulosis (562.10, K57.90) Status: Active Epistaxis (784.7, R04.0) Status: Active Cognitive decline (294.9, R41.89) Status: Active Marital dysfunction (V61.10, Z63.0) Status: Active Cerebral infarction due to occlusion or stenosis of cerebral artery (434.91, I63.50) Status: Active Hyperlipidemia (272.4, E78.5) Status: Active Breast cancer screening (V76.10, Z12.31) Status: Active Osteopenia (733.90, M85.80) Status: Active GERD without esophagitis (530.81, K21.9) Status: Active Sepsis (038.9, A41.9) Status: Active Pneumonia (486, J18.9) Status: Active Hospital discharge follow-up (V67.59, Z09) Status: Active Acute UTI (599.0, N39.0) Status: Active MDD (major depressive disorder), single episode, mild (296.21, F32.0) Status: Active Anxiety (300.00, F41.9) Status: Active Vascular dementia (290.40, F01.50) Status: Active Leukocytosis (288.60, D72.829) Status: Active Renal insufficiency (593.9, N28.9) Status: Active Essential (primary) hypertension (401.9, I10) Status: Active Medications Name Dates Details FLUoxetine HCl - 40 MG Oral Capsule Take one (1) capsule(s) BY MOUTH daily.(total 60mg daily) Quantity: 90 PERDOMO NazALDEN * Start : 30-Jul-2013 Active Clopidogrel Bisulfate 75 MG Oral Tablet TAKE ONE TABLET BY MOUTH EVERY DAY FOR HEART ATTACK AND STROKE PREVENTION... ritesh tamayo office visit * Quantity: 90 Refills: 1 OTF SAUCEDA * Start : 17-Nov-2014 Active DME walker with seat * Quantity: 1 Refills: 0 MARK Allen.A.RICKOTF * Start : 03-Jun-2014 Active Atenolol 50 MG Oral Tablet TAKE 1/2 TABLET BY MOUTH DAILY FOR HIGH BLOOD PRESSURE AND HEART DISEASE every d ay * Quantity: 90 Refills: 0 MARK P.A.RICKOTF * Start : 29-Mar-2015 Active Pantoprazole Sodium 40 MG Oral Tablet Delayed Release Take one (1) tablet(s) by mouth daily. * Quantity: 90 Refills: 1 MARK Allen.A.RICKOTF * Start : 08-Sep-2015 Active Centrum Silver TABS TAKE 1 TABLET DAILY. * Refills: 0 Active Alendronate Sodium 70 MG Oral Tablet TAKE ONE (1) TABLET(S) BY MOUTH ONCE WEEKLY WITH WATER 30 MINUTES BEFORE FIRST F OOD, BEVERAGE OR MEDICINE OF THE DAY. * Quantity: 12 Refills: 1 MARK Allen.Suzy.RICKOTF * Start : 05-Sep-2018 Active Memantine HCl - 10 MG Oral Tablet TAKE ONE TABLET BY MOUTH TWICE A DAY * Refills: 0 Active Aspirin 81 MG TABS one daily * Refills: 0 Active Pravastatin Sodium 40 MG Oral Tablet TAKE ONE TABLET BY MOUTH AT BEDTIME. * Quantity: 90 Refills: 1 MARK Allen.Suzy.RICKOTF * Start : 01-Aug-2018 Active traMADol HCl - 50 MG Oral Tablet TAKE 1 TABLET EVERY 8 HOURS PRN * Quantity: 30 Refills: 1 BABS Mejia.PGODWIN Ahmadi * Start : 04-Jan-2017 Active FLUoxetine HCl - 20 MG Oral Capsule Take one (1) capsule(s) BY MOUTH daily. * Quantity: 30 Refills: 0 BABS Mejia.PPOOJA AhmadiA * Start : 07-Nov-2018 Active Vitamin B12 TABS 2500mg qd * Refills: 0 Active amLODIPine Besylate 10 MG Oral Tablet TAKE 1 TABLET DAILY. * Refills: 0 Active Benzonatate 100 MG Oral Capsule TAKE 1 CAPSULE BY MOUTH EVERY 6 HOURS NEEDED. * Quantity: 40 Refills: 1 Active Allergies and Adverse Reactions Name Dates Details rivastigmine (Allergy) Status: Active Past Medical History Name Dates Details History of anemia (V12.3, Z86.2) Status: Resolved History of Anxiety (300.00, F41.9) Status: Resolved History of Cardiomyopathy (425.4) Status: Resolved History of Dysthymic Disorder (V11.2) Status: Resolved History of esophageal reflux (V12.79, Z87.19) Status: Resolved History of hemorrhoids (V13.89, Z87.19) Status: Resolved History of hiatal hernia (V12.79, Z87.19) Status: Resolved History of hyperlipidemia (V12.29, Z86.39) Status: Resolved History of Tingling (782.0, R20.2) Status: Resolved Procedures Procedure Dates Details History of Tonsillectomy With Adenoidectomy Completed History of Hysterectomy Completed History of Laminectomy Cervical Completed Immunization Name Dates Details Tdap on: 30-Apr-2008 Pneumococcal polysaccharide vaccine, 23 valent on: 30-Apr-2008 Influenza on: 06-Sep-2012 Fluzone INJ Lot #: [id number] on: 08-Jul-2014 Prevnar 13 Intramuscular Suspension Lot #: [id number] on: 02-Nov-2014 Fluzone Quadrivalent 0.5 ML Intramuscular Suspension Lot #: [id number] on: 08-Sep-2015 Fluzone Quadrivalent 0.5 ML Intramuscular Suspension Lot #: [id number] on: 29-Aug-2016 Influenza on: 18-Jun-2018 Fluzone Quadrivalent 0.5 ML Intramuscular Suspension on: 20-Jun-2018 Family History Name Dates Details Family history of Hypertension (V17.49) Status: Active Social History Name Dates Details - Status: Name Dates Details Never smoker Vital Signs Date Test Result Details No Known Vitals to report Results Date Description Value Details Results not documented Plan of Care Name Dates Details Planned Observations Planned Goals not documented Planned Encounters Appointment; GODWIN BRICE NP On: 13-Nov-2018 16:00 Interventions Provided Medication Changes* FLUoxetine HCl - 20 MG Oral Capsule - Renew Instructions Name Dates Details Instructions not documented Encounters Appointment; MAHIN PAULINO M.D. Encounter Diagnosis: Problem not documented On: 09-Nov-2016 13:30 Appointment; OTF FLORES P.A. Encounter Diagnosis: Problem not documented On: 27-Nov-2016 13:00 Appointment; GODWIN BRICE NP Encounter Diagnosis: Problem not documented On: 04-Jan-2017 13:30 Appointment; BERNICE LYMAN M.D. Encounter Diagnosis: Problem not documented On: 05-Jan-2017 15:30 Appointment; BERNICE LYMAN M.D. Encounter Diagnosis: Problem not documented On: 25-Jan-2017 10:30 Appointment; BERNICE LYMAN M.D. Encounter Diagnosis: Problem not documented On: 22-Mar-2017 13:30 Appointment; OTF FLORES P.A. Encounter Diagnosis: Problem not documented On: 10-Apr-2017 15:15 Appointment; OTF FLORES P.A. Encounter Diagnosis: Problem not documented On: 05-Jun-2017 11:15 Appointment; BHAVESH PRESSLEY M.D. Encounter Diagnosis: Problem not documented On: 07-Jun-2017 11:00 Appointment; BHAVESH PRESSLEY M.D. Encounter Diagnosis: Problem not documented On: 07-Jun-2017 15:30 Appointment; LUIS MIGUEL MOSS M.D. Encounter Diagnosis: Problem not documented On: 25-Jun-2017 13:30 Appointment; GODWIN BRICE NP Encounter Diagnosis: Problem not documented On: 13-Sep-2017 9:00 Appointment; GODWIN BRICE NP Encounter Diagnosis: Problem not documented On: 03-Oct-2017 14:30 Appointment; ALDEN PERDOMO M.D. Encounter Diagnosis: Problem not documented On: 09-Oct-2017 11:00 Appointment; OTF FLORES P.A. Encounter Diagnosis: Problem not documented On: 30-Jan-2018 13:15 Appointment; ALDEN PERDOMO M.D. Encounter Diagnosis: Problem not documented On: 01-Apr-2018 13:30 Appointment; OTF FLORES P.A. Encounter Diagnosis: Problem not documented On: 04-Jul-2018 14:00 Appointment; ALDEN PERDOMO M.D. Encounter Diagnosis: Problem not documented On: 22-Jul-2018 15:00 Appointment; OTF FLORES P.A. Encounter Diagnosis: Problem not documented On: 27-Aug-2018 13:15
--- OUTSIDE RECORDS SUMMARY | 2018-11-12 14:16 | XMS REPORT ---
Author [facility] Address Unknown Phone Unavailable Care Team Providers Care Pet Sitting Name Role Phone TONI DOUGLAS Unavailable Unavailable Suzy GARCIA Unavailable Unavailable Problems This patient has no known problems. Allergies, Adverse Reactions, Alerts This patient has no known allergies or adverse reactions. Medications This patient has no known medications. Results Test Description Test Time Test Comments Text Results Atomic Results Result Comments CHEST 2 VIEWS 2018-06-11 18:29:00 [facility] [address] [place] [address] Patient Name: GERTRUDE CARR MR #: [id number] : 1940 Age/Sex: 78/F Req #: [id number] [facility] Physician: TONI DOUGLAS MD Ordered by: TONI DOUGLAS MD Report #: [id number] Location: MED/SURG2 Room/Bed: [facility] Procedure: [id number] DX/CHEST 2 VIEWS Exam Date: 06/11/18 Exam Time: 1750 REPORT STATUS: Signed EXAMINATION: PA and lateral views of the chest. COMPARISON: AP chest 09/02/2017 CLINICAL HISTORY: Cough, urosepsis DISCUSSION: Lines/tubes: None. Lungs: The lungs are well inflated and grossly clear. There is no evidence of pneumonia or pulmonary edema. Pleura: There is no pleural effusion or pneumothorax. Heart and mediastinum: Enlarged cardiac silhouette. Pulmonary vasculature is normal. Bones and soft tissues: No acute bony abnormalities. Degenerative changes in the thoracic spine with associated dextroscoliosis IMPRESSION: Enlarged cardiac silhouette, without acute cardiopulmonary abnormalities. Signed by: Dr. Mellisa Castellanos M.D. on 06/11/2018 6:31 PM Dictated By: MELLISA CASTELLANOS MD 30 Transcribed By: JOEL on 06/11/181830 COPY TO: TONI DOUGLAS MD CT ABDOMEN/PELVIS WO 2018-06-08 14:59:00 [place] [address] Patient Name: GERTRUDE CARR MR #: [id number] : 1940 Age/Sex: 78/F Req #: [id number] Adm Physician: TONI DOUGLAS MD Ordered by: TONI DOUGLAS MD Report #: [id number] Location: MED/SURG Room/Bed: [facility] Procedure: [id number] CT/CT ABDOMEN/PELVIS WO Exam Date: 06/08/18 Exam Time: 1422 REPORT STATUS: Signed EXAMINATION: CT of the abdomen and pelvis without contrast. TECHNIQUE: Spiral CT images of the abdomen and pelvis were performed from the lung bases to the lesser trochanters. No intravenous contrast was given per physician's request. Coronal and sagittal reformatted images were obtained. COMPARISON: None. CLINICAL HISTORY:UTI, urosepsis DISCUSSION: ABSENCE OF INTRAVENOUS CONTRAST DECREASES SENSITIVITY FOR DETECTION OF FOCAL LESIONS AND VASCULAR PATHOLOGY. ABDOMEN/PELVIS: LOWER THORAX: Minimal right lower lobe atelectatic changes. Atherosclerotic calcification of the thoracic aorta. Small hiatal hernia. HEPATOBILIARY: No focal hepatic lesions. No intra or extrahepatic biliary ductal dilation. GALLBLADDER: No radio-opaque stones or sludge. No wall th ickening. SPLEEN: No splenomegaly. PANCREAS: No focal masses or ductal dilatation. Moderate fatty replacement, predominantly involving the neck and head ADRENALS: Mild thickening of bilateral adrenal glands. No focal lesion. KIDNEYS/URETERS: No renal or ureteral calculi, hydronephrosis or obstruction. Mild bilateral perinephric stranding. No contour abnormalities. PELVIC ORGANS/BLADDER: Bladder is unremarkable. Uterus is absent. No adnexal masses. Multiple pelvic phleboliths. PERITONEUM/RETROPERITONEUM: No free air or fluid. LYMPH NODES: Mildly enlarged portacaval lymph node, which measures approximately 1.2 cm in short axis (series 3, image 48). Mildly prominent subcentimeter gastrohepatic ligament node (series 3, image 36). Several mildly prominent, although subcentimeter lymph nodes are noted in the peripancreatic region (example series 3, image 55. No retroperitoneal, pelvic or inguinal adenopathy. VESSELS: Atherosclerotic calcification of the abdominal aorta and iliac vessels. GI TRACT: No bowel dilation or evidence of obstruction. No pericolonic inflammatory changes. Descending and sigmoid colon diverticulosis, without diverticulitis. Greater portion of the small bowel is located in the right abdomen, suggesting malrotation. BONES AND SOFT TISSUES: No aggressive lytic lesions. Marked S-shaped scoliosis of the thoracolumbar spine, with associated degenerative changes. No lytic lesions. Bilateral gluteal region calcified injection granulomas. IMPRESSION: 1. No renal or ureteral calculi, hydronephrosis or obstruction. Mild bilateral perinephric stranding, which is nonspecific. Unable to evaluate for pyelonephritis given the lack of intravenous contrast. 2. Bladder has an unremarkable noncontrast appearance. 3. Mildly enlarged portacaval lymph node, which is nonspecific. There are other mildly prominent, although subcentimeter lymph nodes in the peripancreatic and gastrohepatic ligament areas. These may be reactive secondary to prior inflammation or infection. No acute peripancreatic inflammatory changes are noted. Signed by: Dr. Mellisa Castellanos M.D. on 06/08/2018 3:10 PM Dictated By: MELLISA CASTELLANOS MD 0156 Transcribed By: JOEL on 06/08/18 4140 COPY TO: TONI DOUGLAS MD CHEST SINGLE (PORTABLE) 2018-06-08 06:04:00 [facility] [address] [place] [address] Patient Name: GERTRUDE CARR MR #: [id number] : 1940 Age/Sex: 78/F Req #: [id number] Adm Physician: TONI DOUGLAS MD Ordered by: CAT TREJO NP Report #: [id number] Location: ERHOLD Room/Bed: [place] [address] Procedure: [id number] DX/CHEST SINGLE (PORTABLE) Exam Date: 06/08/18 Exam Time: 0500 REPORT STATUS: Signed CHEST SINGLE (PORTABLE), 06/08/2018 7:00 AM Technique: CHEST SINGLE (PORTABLE) Comparison: Previous day Clinical history: Weakness Findings: Stable prominent cardiomediastinal silhouette. No consolidation or edema. No effusion or pneumothorax. Scoliotic curvature of the spine. Impression: 1. Lines/Tubes: None 2. No acute abnormality. Signed by: Dr Danyelle Chin MD on 06/08/2018 6:04 AM Dictated By: DANYELLE CHIN MD 3 Transcribed By: JOEL on 06/08/18603 COPY TO: CAT TREJO NP CHEST SINGLE (PORTABLE) 2018-06-07 21:17:00 [place] [address] Patient Name: GERTRUDE CARR MR #: [id number] : 1940 Age/Sex: 78/F Req #: [id number] Adm Physician: Ordered by: CAT TREJO NP Report #: [id number] Location: ER Room/Bed: Procedure: [id number] DX/CHEST SINGLE (PORTABLE) Exam Date: 06/07/18 Exam Time: 2104 REPORT STATUS: Signed CHEST SINGLE (PORTABLE), 06/07/2018 8:53 PM Technique: CHEST SINGLE (PORTABLE) Comparison: 09/02/2017 Clinical history: Weakness, nausea vomiting Findings: Stable prominent cardiomediastinal silhouette. No consolidation or edema. No effusion or pneumothorax. Scoliotic curvature of the spine. Impression: 1. Lines/Tubes: None 2. No acute abnormality. Signed by: Dr Danyelle Chin MD on 06/07/2018 9:18 PM Dictated By: DANYELLE CHIN MD 17 Transcribed By: JOEL on 06/07/182117 COPY TO: CAT TREJO NP CT BRAIN WO [place] [address] Patient Name: GERTRUDE CARR MR #: [id number] : 1940 Age/Sex: 77/F Req #: [id number] Adm Physician: Ordered by: XAVIER GARCIA MD Report #: [id number] Location: ER Room/Bed: Procedure: [id number] CT/CT BRAIN WO Exam Date: 09/02/17 Exam Time: 1919 REPORT STATUS: Signed EXAMINATION: Head CT without contrast. HISTORY:Altered mental status, overdose. COMPARISON:CT and MRI brain from 03/14/2016. TECHNIQUE: Multidetector axial images were obtained from the foramen magnum to the vertex without contrast. The images were reconstructed using brain and bone algorithms. Thin section brain images were reformatted into coronal and sagittal planes. Intravenous contrast: None IMAGE QUALITY: Acceptable. FINDINGS: Skull/scalp: No abnormality. Parenchyma: Nonspecific bilateral frontoparietal patchy and confluent hypodensity, particularly confluent white matter hypodensity in bilateral posterior periventricular white matter, belle radiata and centrum semiovale are likely related to small vessel ischemic changes. No acute hemorrhage, mass or acute major vascular territorial infarct. Arteries: Mild atherosclerotic calcification in bilateral carotid siphon and V4 segment of the vertebral arteries. Dural sinuses: No abnormal density suggestive of thrombosis. Ventricles: Mild compensated dilatation due to volume loss. Extra-axial spaces: No abnormal density. Brain volume: Normal for age. Craniocervical junction: No mass, Chiari malformation, or basilar invagination. Sella: No mass. Paranasal/mastoid sinuses: Imaged portions unremarkable. IMPRESSION: No acute intracranial abnormality, particularly no acute hemorrhage, mass or acute major vascular territorial infarct. Interval progression of moderate to severe supratentorial white matter microvascular ischemic changes. Mild generalized cerebral volume loss. Signed by: Dr. Ruba Jarrell M.D. on 09/02/2017 8:31 PM Dictated By: RUBA JARRELL MD 30 Transcribed By: JOEL on 09/02/172030 COPY TO: XAVIER GARCIA MD CHEST SINGLE (NOT PORTABLE) [place] [address] Patient Name: GERTRUDE CARR MR #: [id number] : 1940 Age/Sex: 77/F Req #: [id number] Adm Physician: Ordered by: ABHI BASURTO MD Report #: [id number] Location: ER Room/Bed: Procedure: [id number] DX/CHEST SINGLE (NOT PORTABLE) Exam Date: 09/02/17 Exam Time: 1608 REPORT STATUS: Signed EXAM: XR CHEST 1 VIEW DATE: 09/02/2017 3:29 PM INDICATION: Weakness COMPARISON: 01/09/2017 FINDINGS: Lines and Tubes: None Heart and Mediastinum: No acute findings. Lungs and Pleura: No acute findings. Bones and Soft Tissues: No acute findings. IMPRESSION: 1. No acute cardiopulmonary findings. Signed by: Dr. Raciel Rodriguez MD on 09/02/2017 4:14 PM Dictated By: RACIEL RODRIGUEZ MD 1614 Transcribed By: JOEL on 09/02/17 1614 COPY TO: ABHI BASURTO MD
--- NOTE | 2018-11-12 15:00 | NUR ---
Pericare provided for the patient following a bowel movement.
[2018-11-12 15:14] LABS: BASOPHILS # (AUTO) 0.1 (0.0-0.1); BASOPHILS % 1.1 % (0.0-1.0); EOSINOPHILS # (AUTO) 0.5 (0.0-0.4); EOSINOPHILS % 4.6 % (0.0-6.0); HEMATOCRIT 35.6 % (34.2-44.1); HEMOGLOBIN 11.1 g/dL (12.0-16.0); LYMPHOCYTES % 27.3 % (18.0-39.1); MEAN CORPUSCULAR HEMOGLOBIN 27.7 pg (28-32); MEAN CORPUSCULAR HGB CONC 31.2 g/dL (31-35); MEAN CORPUSCULAR VOLUME 88.8 fL (81-99); MONOCYTES # (AUTO) 0.7 (0.2-0.8); MONOCYTES % 5.9 % (4.4-11.3); NEUTROPHILS # (AUTO) 6.7 (2.1-6.9); NEUTROPHILS % 60.6 % (38.7-80.0); PLATELET COUNT 274 x10e3/uL (140-360); RED BLOOD COUNT 4.01 x10e6/uL (3.6-5.1); RED CELL DISTRIBUTION WIDTH 16.5 % (11.7-14.4)
[2018-11-12 15:23] LABS: INR 0.97; PROTHROMBIN TIME 13.8 seconds (11.9-14.5)
[2018-11-12 15:24] LABS: PARTIAL THROMBOPLASTIN TIME 32.1 seconds (23.8-35.5)
[2018-11-12 15:35] LABS: ALBUMIN 3.1 g/dL (3.5-5.0); ALBUMIN/GLOBULIN RATIO 0.7 (0.8-2.0); ANION GAP 18.1 mmol/L (8-16); CALCIUM 9.2 mg/dL (8.4-10.2); CREATININE, SERUM 1.54 mg/dL (0.57-1.11); POTASSIUM 4.1 mmol/L (3.5-5.1)
[2018-11-12 15:43] LABS: CREATINE KINASE MB 0.5 ng/mL (0-5.0)
[2018-11-12 16:11] LABS: BILIRUBIN,URINE NEGATIVE (NEGATIVE); CLARITY,URINE SL CLOUDY (CLEAR); COLOR,URINE YELLOW (YELLOW); KETONES,URINE NEGATIVE (NEGATIVE); LEUKOCYTE ESTERASE ,URINE NEGATIVE (NEGATIVE); NITRITE,URINE NEGATIVE (NEGATIVE); PROTEIN,URINE DIPSTICK NEGATIVE (NEGATIVE); URINE UROBILINOGEN 0.2 mg/dL (0.2 - 1)
[2018-11-12 16:20] LABS: BACTERIA,URINE MANY /HPF
--- NOTE | 2018-11-12 16:25 | NUR ---
RAMÓN FROM LAB CALLED TO REPORT CRITICAL LACTIC ACID 35.2. INFORMED DR. GARCIA OF THIS LAB RESULT.
[2018-11-12] MEDS ORDERED: SODIUM CHLORIDE 0.9% 1000ML 1,000 ML IV STA ×2 (16:30→16:58)
[2018-11-12] MEDS: CEFEPIME 2 GM/NS 0.9% 100 ML 100 ML IV SCH (16:40)
[2018-11-12] MEDS ORDERED: VANCOMYCIN 1GM/NS 250 ML 250 ML IV ONE (16:45)
--- NOTE | 2018-11-12 17:02 | Diagnostic Imaging Report ---
Examination: CT head without contrast Clinical Indication: Fall; head injury with loss of consciousness; history of dementia. Technique: Transaxial noncontrast images from the skull base through the vertex were obtained. Sagittal and coronal reformatted images were done. Dose modulation, iterative reconstruction, and/or weight based adjustment of the mA/kV was utilized to reduce the radiation dose to as low as reasonably achievable. Comparison: Head CT dated September 02, 2017. Findings: Scalp: No abnormalities. Bones: Intact. No fractures. No blastic or lytic lesions. Brain sulci: Mild generalized volume loss for patient's age, unchanged. Ventricles: No hydrocephalus. Extra-axial space: No abnormalities. Parenchyma: Again demonstrated are confluent areas of low-attenuation within subcortical and periventricular white matter, nonspecific, but could represent microvascular ischemic disease. No masses, hemorrhage, or acute or chronic cortical based vascular insults. Suprasellar region: No abnormalities. Craniocervical junction: The foramen magnum is patent. No Chiari one malformation. Incidental findings: Atherosclerotic calcification of the cavernous and supraclinoid internal carotid and V4 segments of the bilateral vertebral arteries. Impression: 1. No new acute intracranial abnormality when compared to prior head CT performed September 02, 2017. 2. Unchanged moderate to severe chronic microvascular ischemic change and mild volume loss. Signed by: Dr. Letitia Javier M.D. on 11/12/2018 4:59 PM
[2018-11-12] MEDS ORDERED: SODIUM CHLORIDE 0.9% 500ML 1,000 ML ONE (17:04)
--- NOTE | 2018-11-12 17:10 | Diagnostic Imaging Report ---
Examination: CT CERVICAL SPINE WITHOUT CONTRAST HISTORY:Neck pain after fall. COMPARISON:None. TECHNIQUE: Multidetector helical axial images were obtained without contrast from the foramen magnum to T1. Coronal and sagittal reformatted images were done. Bone and soft tissue windows were evaluated. Dose modulation, iterative reconstruction, and/or weight based adjustment of the mA/kV was utilized to reduce the radiation dose to as low as reasonably achievable. FINDINGS: Alignment:Normal alignment with leftward curvature centered at C5-C6. Vertebrae: Normal height and density. No acute fracture, infection or neoplasm. Subchondral cyst formation is demonstrated at the posterior aspect of the dens with calcified soft tissue in the retrodental space. This finding can be seen in rheumatoid arthritis. Disc space heights: Severely narrowed from C5 through C7 and moderately narrowed at C6-7 T1. Caliber of spinal canal: Developmentally normal. Posterior fossa and craniocervical junction: Foramen magnum patent. No Chiari 1 malformation. Soft tissues: No abnormality. Degenerative changes: Anterior osteophytosis C4-T1. Prior decompressive laminectomies from C3 through C6. Severe degenerative narrowing at C1-C2 joint with productive bone formation and incomplete fusion of the anterior arch of C1. C2-C3: Severe bilateral facet and uncovertebral arthropathy results in severe bilateral neural foraminal narrowing. C3-C4: Central disc osteophyte protrusion. Severe bilateral facet and uncovertebral arthropathy results in severe bilateral neural foraminal narrowing. C4-C5: Severe right and mild left facet and uncovertebral arthropathy results in severe right and mild left neural foraminal narrowing. C5-C6: Diffuse disc osteophyte complex and bilateral uncovertebral arthropathy result in moderate right and mild left neural foraminal narrowing. C6-C7: Diffuse disc osteophyte complex and bilateral uncovertebral arthropathy result in mild bilateral neural foraminal narrowing. Degenerative grade I anterolisthesis of C7 on T1. Visualized lung apices: Biapical pleural thickening. IMPRESSION: 1. No acute abnormalities. 2. Prior decompressive laminectomies from C3 through C6. 3. Degenerative changes from C1 through T1, as above. 4. Findings as described at C2 can be seen in rheumatoid arthritis. Signed by: Dr. Letitia Javier M.D. on 11/12/2018 5:06 PM
--- NOTE | 2018-11-12 17:39 | Diagnostic Imaging Report ---
Examination: Single AP view of the chest. COMPARISON: None. INDICATION: Fall DISCUSSION: Lines/tubes: None. Lungs: The lungs are well inflated and clear. No pneumonia or pulmonary edema. Pleura: No pleural effusion or pneumothorax. Heart and mediastinum: Heart silhouette is enlarged. Bones and soft tissues: No acute bony abnormalities. IMPRESSION: 1. No acute cardiopulmonary abnormalities. Signed by: Dr. Michael Smith M.D. on 11/12/2018 5:36 PM
--- NOTE | 2018-11-12 17:43 | Diagnostic Imaging Report ---
Exam: Right hip 2 views History: Pain, fall Comparison: None. Findings: No fracture or malalignment. Mild degenerative arthrosis of the hips. Enthesophyte change adjacent to the greater trochanter. Impression: No displaced fracture. Signed by: Dr. Michael Smith M.D. on 11/12/2018 5:39 PM
--- NOTE | 2018-11-12 18:45 | NUR ---
Pt placed onto bedpan.
--- NOTE | 2018-11-12 19:00 | NUR ---
Report to Lesia JARAMILLON.
--- NOTE | 2018-11-12 20:40 | Diagnostic Imaging Report ---
EXAMINATION: CT of the abdomen and pelvis without contrast. TECHNIQUE: Helical CT images of the abdomen and pelvis were performed from the lung bases to the lesser trochanters. No intravenous contrast was given per renal stone protocol. Coronal and sagittal reformatted images were obtained. COMPARISON: None. CLINICAL HISTORY:Fall, pain DISCUSSION: ABSENCE OF INTRAVENOUS CONTRAST DECREASES SENSITIVITY FOR DETECTION OF FOCAL LESIONS AND VASCULAR PATHOLOGY. ABDOMEN/PELVIS: LOWER THORAX: Unremarkable. HEPATOBILIARY:No focal hepatic lesions. No biliary ductal dilation. The gallbladder is normal. SPLEEN: No splenomegaly. PANCREAS: No focal masses or ductal dilatation. ADRENALS: No adrenal nodules. KIDNEYS/URETERS: No hydronephrosis, stones, or solid mass lesions. PELVIC ORGANS/BLADDER: Bladder unremarkable. Hysterectomy. PERITONEUM/RETROPERITONEUM: No free air or fluid. LYMPH NODES: No intra-abdominal,retroperitoneal, pelvic or inguinal lymphadenopathy. VESSELS: Unremarkable. GI TRACT: Colonic diverticulosis without inflammatory change BONES AND SOFT TISSUES: Leftward lumbar scoliosis. Bone demineralization. No displaced fracture. Hyperdense fluid within the right gluteal region likely hematoma. Adjacent stranding. IMPRESSION: Right gluteal soft tissue hematoma. No fracture. Signed by: Dr. Michael Smith M.D. on 11/12/2018 8:36 PM
[2018-11-12] MEDS: SODIUM CHLORIDE 0.9% 1000ML 1,000 ML IV SCH (20:42)
[2018-11-12] MEDS: ONDANSETRON HCL INJ 2MG/ML 2ML 2 MG/ML VIAL IV PRN (20:42)
--- NOTE | 2018-11-12 20:50 | NUR ---
Patient received via stretcher from ER accompanied by . Admission history obtained. Initial physical assessment conducted. Patient is AAO x 3. No complaints of pain. Respirations even and non-labored. Ecchymosis noted to right hip/buttocks due to fall at home. Patient oriented to room, call light and plan of care. IVF infusing at 100 cc / hr. Bed locked and in lowest position. Bed rails up x 2. Bed alarm activated. Patient instructed to call for assistance when needed. Call light within reach.
[2018-11-12 21:50] VITALS: BP 152/85
[2018-11-12 21:55] VITALS: BP 152/85
[2018-11-13] VITALS: BP 117/71
[2018-11-13] MEDS: ONDANSETRON HCL INJ 2MG/ML 2ML 2 MG/ML VIAL IV PRN (01:21)
--- NOTE | 2018-11-13 01:30 | NUR ---
Patient complained of pain to her right hip (04/09). Dr. Alexandre Palacios paged. Awaiting call back.
[2018-11-13 01:56] VITALS: BP 152/85
--- NOTE | 2018-11-13 02:07 | NUR ---
Dr. Alexandre Palacios re-paged regarding pain medications for patient. Awaiting call back.
--- NOTE | 2018-11-13 03:02 | NUR ---
Dr. Alexandre Palacios paged regarding pain medications for patient. Awaiting call back.
[2018-11-13 04:00] VITALS: BP 150/69
[2018-11-13 04:48] LABS: BASOPHILS # (AUTO) 0.1 (0.0-0.1); BASOPHILS % 0.4 % (0.0-1.0); EOSINOPHILS # (AUTO) 0.2 (0.0-0.4); EOSINOPHILS % 1.2 % (0.0-6.0); HEMATOCRIT 28.2 % (34.2-44.1); HEMOGLOBIN 8.9 g/dL (12.0-16.0); LYMPHOCYTES % 19.2 % (18.0-39.1); MEAN CORPUSCULAR HEMOGLOBIN 27.4 pg (28-32); MEAN CORPUSCULAR HGB CONC 31.6 g/dL (31-35); MEAN CORPUSCULAR VOLUME 86.8 fL (81-99); MONOCYTES % 6.2 % (4.4-11.3); NEUTROPHILS # (AUTO) 11.3 (2.1-6.9); NEUTROPHILS % 72.6 % (38.7-80.0); PLATELET COUNT 199 x10e3/uL (140-360); RED BLOOD COUNT 3.25 x10e6/uL (3.6-5.1); RED CELL DISTRIBUTION WIDTH 16.7 % (11.7-14.4)
[2018-11-13] MEDS: CEFEPIME 2 GM/NS 0.9% 100 ML 100 ML IV SCH (05:07)
[2018-11-13] MEDS: SODIUM CHLORIDE 0.9% 1000ML 1,000 ML IV SCH (05:07)
[2018-11-13 05:10] LABS: ALBUMIN 2.7 g/dL (3.5-5.0); ALBUMIN/GLOBULIN RATIO 0.8 (0.8-2.0); ANION GAP 13.6 mmol/L (8-16); CALCIUM 8.2 mg/dL (8.4-10.2); CREATININE, SERUM 1.51 mg/dL (0.57-1.11); POTASSIUM 3.6 mmol/L (3.5-5.1)
[2018-11-13] MEDS ORDERED: ACETAMINOPHEN 325 MG TAB PO PRN (06:15)
--- NOTE | 2018-11-13 06:40 | NUR ---
Dr. Palacios re-paged. New order received for Tylenol 650 mg Q6 PO PRN.
--- NOTE | 2018-11-13 07:05 | NUR ---
RCD PT AT BED PT IS ALERT AND ORIENTED PT RESTING ON BED NO SIGNS OF ANY DISTRESS NOTED IV PATENT FAMILY AT BED SIDE BED LOW AND LOCKED CALL LIGHT IN REACH
[2018-11-13 08:23] VITALS: BP 133/63
[2018-11-13] MEDS ORDERED: FLUOXETINE HCL 20 MG CAP PO SCH (09:00)
[2018-11-13] MEDS ORDERED: PANTOPRAZOLE SOD 40 MG TABEC PO SCH (09:00)
[2018-11-13] MEDS ORDERED: ATENOLOL 50 MG TAB PO SCH (09:00)
[2018-11-13] MEDS ORDERED: BUPROPION HCL 150 MG TABCR PO SCH (09:00)
[2018-11-13] MEDS ORDERED: PRAVASTATIN 20 MG TAB PO SCH (09:00)
[2018-11-13] MEDS ORDERED: MEMANTINE 10 MG TAB PO SCH (09:00)
--- NOTE | 2018-11-13 09:06 | NUR ---
CASE MANAGEMENT ASSESSMENT Petroleum Production Engineer to bedside to discuss plan of care with patient/family. CM/SW role and care transitions discussed. Anticipated discharge plan discussed along with duration of care. CM/SW discussed patients right to make decisions in care. CM/SW work hours given. Patient lives: with Don Admit/Transfer: thru ED Hospital/ER visits since last admit: last hospitalized here in June 2018, 0 ED visits since POA/Emergency contact: Raul Padilla [phone], daughter [address]ona [address] [phone] Current/Previous Home Health: currently with [facility] PCP/Follow-up Care: Dr. Oracio Bowling Current/Previous DME: walker - uses all the time, wheelchair - use for longer distance Medications (referring to index hospitalization or the first time you were in the hospital) a. Were changes made in your medications when you were in the hospital on [date of index hospitalization]? no b. Did you understand the changes? no c. Were you able to obtain your new medications right away? n/a; pt transferred to SNF d. Were you able to take your medications like the doctor wanted you to? yes e. Did the hospital give you an accurate, easy to understand list of medications when you left? yes Scale of 1-10 how comfortable does patient feel with disease management in outpatient settin Other Services: none Employment Status: retired Areas of Concerns: weakness, falls Referral Needs: home health Education Needs: medical management, safety/fall precautions IMM/GALO given and signed (if applicable): IMM given and explained to pt and at bedside. She verbalized understanding. Signed copy in chart. Copy to pt Goal for discharge: Home with home health. Choice letter signed for [facility] and placed in chart. Copy to pt. CM/SW left business card at the bedside with contact information. Name and number was also written on the patients whiteboard. Patient verbalized understanding of discussion. CM will follow-up with ongoing discharge and transition of care needs.
[2018-11-13 09:33] VITALS: BP 133/63
--- NOTE | 2018-11-13 10:07 | NUR ---
A/C TO LEHR OPERATOR PT CAN GO HOME SHE ARRANGED HOME HEALTH AT HOME
[2018-11-13] MEDS ORDERED: TYLENOL WITH C1 EACH PO (10:12)
[2018-11-13] MEDS ORDERED: KEFLEX500 MG PO (10:12)
[2018-11-13] MEDS ORDERED: HEMOCYTE PLUS1 EACH PO (10:13)
--- NOTE | 2018-11-13 10:15 | Discharge Summary ---
PRIMARY CARE PHYSICIAN: Dr. Oracio Bowling. Patient was on observation. FINAL DIAGNOSES 1. Status post fall with large right hip hematoma and left hip small hematoma. The patient was on Plavix and aspirin. 2. Baseline dementia. 3. Slight dehydration, improving. 4. Reactive leukocytosis and low-grade fever secondary to the hematoma. SUMMARY: This 78-year-old female apparently fell and suffered some hematoma. Hemoglobin and hematocrit dropped down to 8.9 and 28.2. Patient is otherwise stable. She was completely asymptomatic other than the right buttock pain and hematoma. The patient is otherwise stable. Patient's spouse wants to take the patient home and I agreed. They already have home health. I suggested to stop the Plavix and aspirin for the next week or so and resume aspirin but do not resume Plavix due to fall risk. Patient is otherwise stable. Discharged home with Keflex 500 mg 3 times a day for 7 days, Hemocyte Plus 1 tablet daily, and Tylenol No. 3 p.r.n. for pain. Patient is otherwise stable, completely without any sign of infection, with reactive leukocytosis and low-grade fever secondary to hematoma. Job#: [id number]
--- NOTE | 2018-11-13 11:08 | NUR ---
BILLY called and spoke with Colleen with [facility] and verified that pt is currently on service with them. Informed her that pt is discharging today. Resumption order and clinicals were faxed [facility] P [phone] F [phone] / [phone]
== END 2018-11-13 10:32 | disposition home health service (06) | DRG 605 ==
LOC: ER 14:12 → ERHOLD 18:33 → MED/SURG2 20:46
PROVIDERS: ADMIT Internal Medicine; ATTEND Internal Medicine
DX: S70.02XA Contusion of left hip, initial encounter (principal); D62 Acute posthemorrhagic anemia; S70.01XA Contusion of right hip, initial encounter; W01.0XXA Fall on same level from slipping, tripping and stumbling without subsequent striking against object, initial encounter; E86.0 Dehydration; I10 Essential (primary) hypertension; F03.90 Unspecified dementia, unspecified severity, without behavioral disturbance, psychotic disturbance, mood disturbance, and anxiety; E78.5 Hyperlipidemia, unspecified; K21.9 Gastro-esophageal reflux disease without esophagitis
CPT/HCPCS: 36415; 70450; 71045; 72125; 74176; 80053; 81001; 82550; 82553; 83605; 83735; 84484; 85025; 85610; 85730; 87040; 87071; 87086; 87186; 87205; 93005; 99284; J2405; J3370; J7030; J7040

== ENCOUNTER 2019-06-19 07:41 | Observation (INO) | payer MEDICARE, OTHER ==
[~2019-06-19] VITALS: Ht 153.7 cm; Wt 63.5 kg
[2019-06-19] MEDS: ACETAMINOPHEN 325 MG TAB PO PRN (02:11)
[~2019-06-19 07:41] MED LIST changes: +HEMOCYTE PLUS1 EACH PO; +KEFLEX500 MG PO; +TYLENOL WITH C1 EACH PO
--- OUTSIDE RECORDS SUMMARY | 2019-06-19 07:45 | XMS REPORT | Summary of Care ---
Author Author OTF SAUCEDA Organization Unknown Address Unknown Phone Unavailable Care Team Providers Care Dry Box Operator Name Role Phone OTF SAUCEDA Unavailable Unavailable NICHO GUTIERREZ [place], [place] Unavailable Unavailable Steve GUTIERREZ, Amador Unavailable Unavailable RIYA GUTIERREZ, ARTEM Mckoy Unavailable Unavailable RUDI HERNANDEZP, CASANDRA Unavailable Unavailable NICHO Childs, LOS Unavailable Unavailable Sherry GUTIERREZ, Mahin Unavailable Unavailable Unavailable Unavailable Functional Status Name Dates Details Functional status health issues are not documented Status: Name Dates Details Cognitive status health issues are not documented Status: Problems Name Dates Details Internal hemorrhoids (455.0, K64.8) Status: Active Seborrheic [...] Active Hiatal hernia (553.3, K44.9) Status: Active Encounter for mini-mental status examination Status: Active Depression screening (V79.0, Z13.31) Status: Active Need for influenza vaccination (V04.81, Z23) Status: Active Fatty liver (571.8, K76.0) Status: [...] of cerebral artery (434.91, I63.50) Status: Active Osteopenia (733.90, M85.80) Status: Active GERD without esophagitis (530.81, K21.9) Status: Active Sepsis (038.9, A41.9) Status: Active Pneumonia (486, J18.9) Status: Active Acute UTI (599.0, N39.0) Status: Active Leukocytosis (288.60, D72.829) Status: Active Hospital discharge follow-up (V67.59, Z09) Status: Active MDD (major depressive disorder), single episode, mild (296.21, F32.0) Status: Active Abrasion of back (911.0, S20.419A) Status: Active Fall in home, initial encounter (E888.9, W19.XXXA) Status: Active Anemia (285.9, D64.9) Status: Active Insomnia (780.52, G47.00) Status: Active Pressure ulcer (707.00, L89.90) Status: Active Traumatic hematoma of buttock, subsequent encounter (V58.89, S30.0XXD) Status: Active Anxiety (300.00, F41.9) Status: Active Vascular dementia (290.40, F01.50) Status: Active Hypotension (458.9, I95.9) Status: Active Renal insufficiency (593.9, N28.9) Status: Active Fatigue (780.79, R53.83) Status: Active Breast cancer screening (V76.10, Z12.39) Status: Active Decreased appetite (783.0, R63.0) Status: Active Elevated LFTs (790.6, R94.5) Status: Active Elevated alkaline phosphatase level (790.5, R74.8) Status: Active Depression screening negative (V79.0, Z13.31) Status: Active Allergic urticaria (708.0, L50.0) Status: Active Hyperlipidemia (272.4, E78.5) Status: Active Frequent falls (V15.88, R29.6) Status: Active Gait disturbance (781.2, R26.9) Status: Active CVA (cerebral vascular accident) (434.91, I63.9) Status: Active Essential (primary) hypertension (401.9, I10) Status: Active Medication management (V58.69, Z79.899) Status: Active Medications Name Dates Details FLUoxetine HCl - 40 MG Oral Capsule TAKE 1 CAPSULE DAILY Quantity: 90 MARK P.A., OTF * Start : 17-Feb-2019 Active Clopidogrel Bisulfate 75 MG Oral Tablet TAKE ONE TABLET BY MOUTH EVERY DAY FOR HEART ATTACK AND STROKE PREVENTION... ritesh ds office visit * Quantity: 90 Refills: 1 MARK P.A., OTF * Start : 17-Nov-2014 Active DME walker with seat * Quantity: 1 Refills: 0 MARK P.A., OTF * Start : 03-Jun-2014 Active Pantoprazole Sodium 40 MG Oral Tablet Delayed Release TAKE 1 TABLET DAILY. * Quantity: 1 Refills: 1 MARK P.A., OTF * Start : 08-Sep-2015 Active 90 Tablet Bottle Centrum Silver TABS TAKE 1 TABLET DAILY. * Refills: 0 Active Aspirin 81 MG TABS one daily * Refills: 0 Active Pravastatin Sodium 40 MG Oral Tablet TAKE ONE (1) TABLET(S) BY MOUTH DAILY NEEDS OFFICE VISIT. * Quantity: 90 Refills: 0 MARK P.A., OTF * Start : 21-Dec-2016 Active Vitamin B12 TABS 2500mg qd * Refills: 0 Active Benzonatate 100 MG Oral Capsule TAKE 1 CAPSULE BY MOUTH EVERY 6 HOURS NEEDED. * Quantity: 40 Refills: 1 Active Mupirocin 2 % External Ointment APPLY A SMALL AMOUNT 3 TIMES DAILY DIRECTED. * Quantity: 1 Refills: 1 OTF SAUCEDA * Start : 21-Nov-2018 Active 22 GM Tube Tylenol Extra Strength 500 MG Oral Tablet TAKE 1 TABLET EVERY 4 TO 6 HOURS NEEDED. * Refills: 0 * Start : 20-May-2019 Active Atenolol 100 MG Oral Tablet TAKE 1 TABLET DAILY. * Refills: 0 * Start : 20-May-2019 Active Namenda XR 21 MG Oral Capsule Extended Release 24 Hour TAKE 1 CAPSULE DAILY * Refills: 0 * Start : 20-May-2019 Active Allergies and Adverse Reactions Name Dates Details rivastigmine (Allergy) Status: Active Past Medical History Name Dates Details History of anemia (V12.3, Z86.2) Status: Resolved History of Anxiety (300.00, F41.9) Status: Resolved History of Dysthymic Disorder (V11.2) Status: Resolved History of esophageal reflux (V12.79, Z87.19) Status: Resolved History of hemorrhoids (V13.89, Z87.19) Status: Resolved History of hiatal hernia (V12.79, Z87.19) Status: Resolved History of hyperlipidemia (V12.29, Z86.39) Status: Resolved History of Non-ischemic cardiomyopathy (425.4, I42.8) Status: Resolved History of Tingling (782.0, R20.2) Status: Resolved Procedures Procedure Dates Details [QH] LIPID PANEL WITH REFLEX TO DIRECT LDL Date: 20-May-2019 [QL] CBC (INCLUDES DIFF/PLT) Date: 20-May-2019 [QL] CMP W/EGFR Date: 20-May-2019 History of Tonsillectomy With Adenoidectomy Completed History of Laminectomy Cervical Completed History of Hysterectomy Completed Immunization Name Dates Details Tdap on: 30-Apr-2008 Pneumococcal polysaccharide vaccine, 23 valent on: 30-Apr-2008 Influenza on: 06-Sep-2012 Fluzone INJ Lot #: [id number] on: 08-Jul-2014 Prevnar 13 Intramuscular Suspension Lot #: [id number] on: 02-Nov-2014 Fluzone Quadrivalent 0.5 ML Intramuscular Suspension Lot #: [id number] on: 08-Sep-2015 Fluzone Quadrivalent 0.5 ML Intramuscular Suspension Lot #: [id number] on: 29-Aug-2016 Influenza on: 18-Jun-2018 Fluzone Quadrivalent 0.5 ML Intramuscular Suspension on: 20-Jun-2018 Family History Name Dates Details Family history of essential hypertension (V17.49, Z82.49) Status: Active Social History Name Dates Details - Status: Name Dates Details Never smoker Vital Signs Date Test Result Details [id number] BP Systolic 101 mm[Hg] Status: Comments: Location: RUE; Position: Sitting BP Diastolic 70 mm[Hg] Status: Comments: Location: RUE; Position: Sitting Height 62 in Status: Weight 130 lb Status: Body Mass Index Calculated 23.78 kg/m2 Status: Body Surface Area Calculated 1.59 m2 Status: Heart Rate 108 /min Status: Comments: Location: R Brachial Artery; Results Date Description Value Details Results not documented Plan of Care Name Dates Details Planned Observations Planned Goals not documented Planned Encounters Appointment; AMADOR CARY M.D. On: 18-May-2020 13:20 Interventions Provided Medication Changes* Pantoprazole Sodium 40 MG Oral Tablet Delayed Release - Renew Instructions Name Dates Details Instructions not documented Encounters Appointment; OTF FLORES P.A. Encounter Diagnosis: Problem [...] Diagnosis: Problem not documented On: 27-Aug-2018 13:15 Appointment; OTF FLORES P.ADaiana Encounter Diagnosis: Problem not documented On: 21-Nov-2018 14:00 Appointment; CASANDRA GRIJALVA NP Encounter Diagnosis: Problem not documented On: 03-Dec-2018 13:00 Appointment; OTF FLORES P.A. Encounter Diagnosis: Problem not documented On: 18-Dec-2018 13:15 Appointment; OTF FLORES P.ADaiana Encounter Diagnosis: Problem not documented On: 05-Feb-2019 15:00 Appointment; OTF FLORES P.A. Encounter Diagnosis: Problem not documented On: 08-Apr-2019 13:00 Appointment; AMADOR CARY M.D. Encounter Diagnosis: Problem not documented On: 18-Apr-2019 13:40 Appointment; AMADOR CARY M.D. Encounter Diagnosis: Problem not documented On: 02-May-2019 13:20 Appointment; [facility], ECHO Encounter Diagnosis: Problem not documented On: 08-May-2019 14:00 Appointment; [facility], [facility] Encounter Diagnosis: Problem not documented On: 08-May-2019 15:00 Appointment; AMADOR CARY M.D. Encounter Diagnosis: Problem not documented On: 20-May-2019 14:40
--- OUTSIDE RECORDS SUMMARY | 2019-06-19 07:45 | XMS REPORT ---
Author Lisa Manning Unknown Address [address] [facility]. Phone Unavailable Care Team Providers Care Garment Folder Name Role Phone Dr. KASH BRUNER Unavailable Unavailable Advance directives Directive Description Status Cardiopulmonary Resuscitation full code Verified By Medical Record Only Allergies Type Substance Reaction Status propensity to adverse reactions No active allergies found for Resident Problems Problem Effective Dates Problem Status A41.9 SEPSIS, UNSPECIFIED ORGANISM 06/13/2018 Active R41.82 ALTERED MENTAL STATUS, UNSPECIFIED 06/13/2018 Active N39.0 URINARY TRACT INFECTION, SITE NOT SPECIFIED 06/13/2018 Active M19.90 UNSPECIFIED OSTEOARTHRITIS, UNSPECIFIED SITE 06/13/2018 Active K21.9 GASTRO-ESOPHAGEAL REFLUX DISEASE WITHOUT ESOPHAGITIS 06/13/2018 Active I10 ESSENTIAL (PRIMARY) HYPERTENSION 06/13/2018 Active M81.0 AGE-RELATED OSTEOPOROSIS WITHOUT CURRENT PATHOLOGICAL FRACTURE 06/13/2018 Active F32.9 MAJOR DEPRESSIVE DISORDER, SINGLE EPISODE, UNSPECIFIED 06/13/2018 Active F41.9 ANXIETY DISORDER, UNSPECIFIED 06/13/2018 Active F03.90 UNSPECIFIED DEMENTIA WITHOUT BEHAVIORAL DISTURBANCE 06/13/2018 Active Medications Medication Dose Form Route Sig Text Dates Status LevoFLOXacin Tablet 500 MG 1 tablet Tablet Oral 1 TAB(S) BY MOUTH DAILY FOR 7 DAYS 06/28/2018 7:00:00 07/05/2018 6:59:00 Afluria Quadrivalent Suspension 0.5 ml Suspension Intramuscular Inject 0.5 ml intramuscularly one time only for Prophylaxis for 1 Day 06/24/2018 15:25:00 06/25/2018 15:24:00 Completed Cephalexin Capsule 500 MG 1 capsule Capsule Oral Give 1 capsule by mouth every 8 hours for UTI for 5 Days 06/14/2018 16:00:00 06/19/2018 15:59:00 Completed Tuberculin PPD Solution 0.1 ml Solution Intradermal Inject 0.1 ml intradermally one time only for Prophylaxis for 1 Day Adm within first 24 hours of admission. Repeat yearly. 06/14/2018 11:14:00 06/15/2018 11:13:00 Completed Memantine HCl Tablet 10 MG 1 tablet Tablet Oral 1 TAB(S) BY MOUTH 2 TIMES A DAY 06/14/2018 15:00:00 Maalox Max Suspension 400-400-40 MG/5ML 30 ml Suspension Oral Give 30 ml by mouth every 6 hours as needed for INDIGESTION 06/14/2018 14:45:00 Loratadine Tablet 10 MG 1 tablet Tablet Oral Give 1 tablet by mouth one time a day for allergies 06/15/2018 7:00:00 FLUoxetine HCl Capsule 40 MG 1 capsule Capsule Oral 1 CAP(S) BY MOUTH DAILY 06/15/2018 7:00:00 Atenolol Tablet 50 MG 1 tablet Tablet Oral 1 TAB(S) BY MOUTH DAILY. HOLD IF SBP<110 AND HR<60 06/15/2018 7:00:00 Clopidogrel Bisulfate Tablet 75 MG 1 tablet Tablet Oral 1 TAB(S) BY MOUTH DAILY 06/15/2018 7:00:00 Acetaminophen Tablet 325 MG 2 tablet Tablet Oral Give 2 tablet by mouth every 6 hours as needed for pain DO NOT EXCEED CUMULATIVE DOSE OF 3GM IN 24 HOURS 06/14/2018 14:45:00 Benzonatate Capsule 100 MG 1 capsule Capsule Oral 1 CAP(S) BY MOUTH EVERY 6 HOURS NEEDED FOR COUGH 06/14/2018 14:45:00 Famotidine Tablet 20 MG 1 tablet Tablet Oral Give 1 tablet by mouth two times a day for GERD PRN NEEDED FOR INDIGESTION 06/14/2018 15:00:00 Protonix Tablet Delayed Release 40 MG 1 tablet Tablet Delayed Release Oral 1 TAB(S) BY MOUTH DAILY 06/16/2018 7:00:00 AmLODIPine Besylate Tablet 10 MG 1 tablet Tablet Oral 1 TAB(S) BY MOUTH DAILY. HOLD FOR SBP<110 OR HR<60 06/15/2018 7:00:00 Results No Known Results Vital signs Description Observation Date INTRAVASCULAR SYSTOLIC 119.0 mm[Hg] 06/14/2018 13:40:00 INTRAVASCULAR DIASTOLIC 73.0 mm[Hg] 06/14/2018 13:40:00 BODY TEMPERATURE 97.9 [degF] 06/14/2018 13:40:00 RESPIRATION RATE 18.0 /min 06/14/2018 13:40:00 HEART BEAT 68.0 {beats}/min 06/14/2018 13:40:00 OXYGEN SATURATION 95.0 % 06/14/2018 13:40:00 BODY TEMPERATURE 97.9 [degF] 06/14/2018 13:54:00 HEART BEAT 68.0 {beats}/min 06/14/2018 13:54:00 RESPIRATION RATE 18.0 /min 06/14/2018 13:54:00 INTRAVASCULAR SYSTOLIC 119.0 mm[Hg] 06/14/2018 13:54:00 INTRAVASCULAR DIASTOLIC 73.0 mm[Hg] 06/14/2018 13:54:00 OXYGEN SATURATION 95.0 % 06/14/2018 13:54:00 RESPIRATION RATE 18.0 /min 06/14/2018 21:56:07 INTRAVASCULAR SYSTOLIC 119.0 mm[Hg] 06/14/2018 21:56:07 INTRAVASCULAR DIASTOLIC 73.0 mm[Hg] 06/14/2018 21:56:07 BODY TEMPERATURE 97.6 [degF] 06/14/2018 21:56:07 HEART BEAT 67.0 {beats}/min 06/14/2018 21:56:07 RESPIRATION RATE 16.0 /min 06/15/2018 5:22:38 INTRAVASCULAR SYSTOLIC 132.0 mm[Hg] 06/15/2018 5:22:38 INTRAVASCULAR DIASTOLIC 82.0 mm[Hg] 06/15/2018 5:22:38 BODY TEMPERATURE 98.9 [degF] 06/15/2018 5:22:38 HEART BEAT 72.0 {beats}/min 06/15/2018 5:22:38 OXYGEN SATURATION 95.0 % 06/15/2018 7:12:00 INTRAVASCULAR SYSTOLIC 133.0 mm[Hg] 06/15/2018 7:20:00 INTRAVASCULAR DIASTOLIC 89.0 mm[Hg] 06/15/2018 7:20:00 HEART BEAT 76.0 {beats}/min 06/15/2018 7:20:00 BODY WEIGHT (MEASURED) 140.2 [lb_av] 06/15/2018 7:21:00 BODY HEIGHT (MEASURED) 64.0 [in_i] 06/15/2018 7:21:00 RESPIRATION RATE 18.0 /min 06/15/2018 9:41:24 BODY TEMPERATURE 97.2 [degF] 06/15/2018 9:41:24 RESPIRATION RATE 17.0 /min 06/15/2018 15:40:56 INTRAVASCULAR SYSTOLIC 118.0 mm[Hg] 06/15/2018 15:40:56 INTRAVASCULAR DIASTOLIC 68.0 mm[Hg] 06/15/2018 15:40:56 BODY TEMPERATURE 97.6 [degF] 06/15/2018 15:40:56 HEART BEAT 63.0 {beats}/min 06/15/2018 15:40:56 OXYGEN SATURATION 97.0 % 06/16/2018 0:32:00 RESPIRATION RATE 16.0 /min 06/16/2018 0:36:55 INTRAVASCULAR SYSTOLIC 131.0 mm[Hg] 06/16/2018 0:36:55 INTRAVASCULAR DIASTOLIC 77.0 mm[Hg] 06/16/2018 0:36:55 BODY TEMPERATURE 98.0 [degF] 06/16/2018 0:36:55 HEART BEAT 67.0 {beats}/min 06/16/2018 0:36:55 INTRAVASCULAR SYSTOLIC 143.0 mm[Hg] 06/16/2018 6:10:33 INTRAVASCULAR DIASTOLIC 73.0 mm[Hg] 06/16/2018 6:10:33 HEART BEAT 71.0 {beats}/min 06/16/2018 6:10:33 RESPIRATION RATE 18.0 /min 06/16/2018 7:49:48 BODY TEMPERATURE 97.6 [degF] 06/16/2018 7:49:48 RESPIRATION RATE 18.0 /min 06/16/2018 18:48:17 INTRAVASCULAR SYSTOLIC 139.0 mm[Hg] 06/16/2018 18:48:17 INTRAVASCULAR DIASTOLIC 81.0 mm[Hg] 06/16/2018 18:48:17 BODY TEMPERATURE 97.8 [degF] 06/16/2018 18:48:17 HEART BEAT 89.0 {beats}/min 06/16/2018 18:48:17 OXYGEN SATURATION 95.0 % 06/17/2018 0:31:00 RESPIRATION RATE 18.0 /min 06/17/2018 0:36:36 INTRAVASCULAR SYSTOLIC 137.0 mm[Hg] 06/17/2018 0:36:36 INTRAVASCULAR DIASTOLIC 74.0 mm[Hg] 06/17/2018 0:36:36 BODY TEMPERATURE 97.9 [degF] 06/17/2018 0:36:36 HEART BEAT 69.0 {beats}/min 06/17/2018 0:36:36 INTRAVASCULAR SYSTOLIC 121.0 mm[Hg] 06/17/2018 6:59:35 INTRAVASCULAR DIASTOLIC 71.0 mm[Hg] 06/17/2018 6:59:35 HEART BEAT 65.0 {beats}/min 06/17/2018 6:59:35 RESPIRATION RATE 18.0 /min 06/17/2018 8:17:18 BODY TEMPERATURE 97.6 [degF] 06/17/2018 8:17:18 RESPIRATION RATE 18.0 /min 06/17/2018 15:46:35 INTRAVASCULAR SYSTOLIC 113.0 mm[Hg] 06/17/2018 15:46:35 INTRAVASCULAR DIASTOLIC 80.0 mm[Hg] 06/17/2018 15:46:35 BODY TEMPERATURE 96.8 [degF] 06/17/2018 15:46:35 HEART BEAT 68.0 {beats}/min 06/17/2018 15:46:35 RESPIRATION RATE 18.0 /min 06/18/2018 1:15:10 INTRAVASCULAR SYSTOLIC 156.0 mm[Hg] 06/18/2018 1:15:10 INTRAVASCULAR DIASTOLIC 79.0 mm[Hg] 06/18/2018 1:15:10 BODY TEMPERATURE 97.1 [degF] 06/18/2018 1:15:10 HEART BEAT 68.0 {beats}/min 06/18/2018 1:15:10 INTRAVASCULAR SYSTOLIC 117.0 mm[Hg] 06/18/2018 7:08:43 INTRAVASCULAR DIASTOLIC 74.0 mm[Hg] 06/18/2018 7:08:43 HEART BEAT 66.0 {beats}/min 06/18/2018 7:08:43 RESPIRATION RATE 18.0 /min 06/18/2018 8:28:29 BODY TEMPERATURE 97.6 [degF] 06/18/2018 8:28:29 RESPIRATION RATE 18.0 /min 06/18/2018 18:58:20 INTRAVASCULAR SYSTOLIC 118.0 mm[Hg] 06/18/2018 18:58:20 INTRAVASCULAR DIASTOLIC 72.0 mm[Hg] 06/18/2018 18:58:20 BODY TEMPERATURE 98.1 [degF] 06/18/2018 18:58:20 HEART BEAT 69.0 {beats}/min 06/18/2018 18:58:20 OXYGEN SATURATION 93.0 % 06/19/2018 0:18:00 RESPIRATION RATE 20.0 /min 06/19/2018 1:20:40 INTRAVASCULAR SYSTOLIC 132.0 mm[Hg] 06/19/2018 1:20:40 INTRAVASCULAR DIASTOLIC 79.0 mm[Hg] 06/19/2018 1:20:40 BODY TEMPERATURE 98.4 [degF] 06/19/2018 1:20:40 HEART BEAT 66.0 {beats}/min 06/19/2018 1:20:40 INTRAVASCULAR SYSTOLIC 121.0 mm[Hg] 06/19/2018 6:50:00 INTRAVASCULAR DIASTOLIC 77.0 mm[Hg] 06/19/2018 6:50:00 HEART BEAT 69.0 {beats}/min 06/19/2018 6:50:00 RESPIRATION RATE 18.0 /min 06/19/2018 8:24:22 INTRAVASCULAR SYSTOLIC 121.0 mm[Hg] 06/19/2018 8:24:22 INTRAVASCULAR DIASTOLIC 77.0 mm[Hg] 06/19/2018 8:24:22 BODY TEMPERATURE 98.0 [degF] 06/19/2018 8:24:22 HEART BEAT 69.0 {beats}/min 06/19/2018 8:24:22 BODY WEIGHT (MEASURED) 139.6 [lb_av] 06/19/2018 9:49:00 RESPIRATION RATE 18.0 /min 06/19/2018 17:53:17 INTRAVASCULAR SYSTOLIC 129.0 mm[Hg] 06/19/2018 17:53:17 INTRAVASCULAR DIASTOLIC 72.0 mm[Hg] 06/19/2018 17:53:17 BODY TEMPERATURE 98.1 [degF] 06/19/2018 17:53:17 HEART BEAT 69.0 {beats}/min 06/19/2018 17:53:17 RESPIRATION RATE 16.0 /min 06/20/2018 0:52:04 INTRAVASCULAR SYSTOLIC 142.0 mm[Hg] 06/20/2018 0:52:04 INTRAVASCULAR DIASTOLIC 80.0 mm[Hg] 06/20/2018 0:52:04 BODY TEMPERATURE 98.2 [degF] 06/20/2018 0:52:04 HEART BEAT 66.0 {beats}/min 06/20/2018 0:52:04 BODY TEMPERATURE 98.7 [degF] 06/20/2018 3:45:00 HEART BEAT 71.0 {beats}/min 06/20/2018 3:45:00 RESPIRATION RATE 18.0 /min 06/20/2018 3:45:00 INTRAVASCULAR SYSTOLIC 133.0 mm[Hg] 06/20/2018 3:45:00 INTRAVASCULAR DIASTOLIC 79.0 mm[Hg] 06/20/2018 3:45:00 PAIN LEVEL 0.0 {score} 06/20/2018 3:45:00 BODY TEMPERATURE 98.5 [degF] 06/20/2018 4:00:00 HEART BEAT 69.0 {beats}/min 06/20/2018 4:00:00 RESPIRATION RATE 18.0 /min 06/20/2018 4:00:00 INTRAVASCULAR SYSTOLIC 126.0 mm[Hg] 06/20/2018 4:00:00 INTRAVASCULAR DIASTOLIC 78.0 mm[Hg] 06/20/2018 4:00:00 BODY TEMPERATURE 98.3 [degF] 06/20/2018 4:15:00 HEART BEAT 70.0 {beats}/min 06/20/2018 4:15:00 RESPIRATION RATE 17.0 /min 06/20/2018 4:15:00 INTRAVASCULAR SYSTOLIC 120.0 mm[Hg] 06/20/2018 4:15:00 INTRAVASCULAR DIASTOLIC 78.0 mm[Hg] 06/20/2018 4:15:00 BODY TEMPERATURE 98.2 [degF] 06/20/2018 4:30:00 HEART BEAT 70.0 {beats}/min 06/20/2018 4:30:00 RESPIRATION RATE 18.0 /min 06/20/2018 4:30:00 INTRAVASCULAR SYSTOLIC 111.0 mm[Hg] 06/20/2018 4:30:00 INTRAVASCULAR DIASTOLIC 78.0 mm[Hg] 06/20/2018 4:30:00 BODY TEMPERATURE 97.9 [degF] 06/20/2018 5:00:00 HEART BEAT 77.0 {beats}/min 06/20/2018 5:00:00 RESPIRATION RATE 17.0 /min 06/20/2018 5:00:00 INTRAVASCULAR SYSTOLIC 125.0 mm[Hg] 06/20/2018 5:00:00 INTRAVASCULAR DIASTOLIC 83.0 mm[Hg] 06/20/2018 5:00:00 BODY TEMPERATURE 97.9 [degF] 06/20/2018 5:30:00 HEART BEAT 72.0 {beats}/min 06/20/2018 5:30:00 RESPIRATION RATE 18.0 /min 06/20/2018 5:30:00 INTRAVASCULAR SYSTOLIC 122.0 mm[Hg] 06/20/2018 5:30:00 INTRAVASCULAR DIASTOLIC 67.0 mm[Hg] 06/20/2018 5:30:00 BODY TEMPERATURE 97.9 [degF] 06/20/2018 6:00:00 HEART BEAT 71.0 {beats}/min 06/20/2018 6:00:00 RESPIRATION RATE 18.0 /min 06/20/2018 6:00:00 INTRAVASCULAR SYSTOLIC 120.0 mm[Hg] 06/20/2018 6:00:00 INTRAVASCULAR DIASTOLIC 78.0 mm[Hg] 06/20/2018 6:00:00 BODY TEMPERATURE 98.3 [degF] 06/20/2018 6:30:00 HEART BEAT 73.0 {beats}/min 06/20/2018 6:30:00 RESPIRATION RATE 17.0 /min 06/20/2018 6:30:00 INTRAVASCULAR SYSTOLIC 120.0 mm[Hg] 06/20/2018 6:30:00 INTRAVASCULAR DIASTOLIC 76.0 mm[Hg] 06/20/2018 6:30:00 INTRAVASCULAR SYSTOLIC 158.0 mm[Hg] 06/20/2018 6:33:56 INTRAVASCULAR DIASTOLIC 76.0 mm[Hg] 06/20/2018 6:33:56 HEART BEAT 69.0 {beats}/min 06/20/2018 6:33:56 RESPIRATION RATE 18.0 /min 06/20/2018 7:00:00 INTRAVASCULAR SYSTOLIC 111.0 mm[Hg] 06/20/2018 7:00:00 INTRAVASCULAR DIASTOLIC 68.0 mm[Hg] 06/20/2018 7:00:00 BODY TEMPERATURE 97.6 [degF] 06/20/2018 7:00:00 HEART BEAT 69.0 {beats}/min 06/20/2018 7:00:00 BODY TEMPERATURE 97.6 [degF] 06/20/2018 8:03:00 HEART BEAT 66.0 {beats}/min 06/20/2018 8:03:00 RESPIRATION RATE 18.0 /min 06/20/2018 8:04:00 INTRAVASCULAR SYSTOLIC 118.0 mm[Hg] 06/20/2018 8:04:00 INTRAVASCULAR DIASTOLIC 64.0 mm[Hg] 06/20/2018 8:04:00 BODY TEMPERATURE 97.4 [degF] 06/20/2018 9:05:00 HEART BEAT 70.0 {beats}/min 06/20/2018 9:05:00 RESPIRATION RATE 18.0 /min 06/20/2018 9:06:00 INTRAVASCULAR SYSTOLIC 116.0 mm[Hg] 06/20/2018 9:06:00 INTRAVASCULAR DIASTOLIC 72.0 mm[Hg] 06/20/2018 9:06:00 BODY TEMPERATURE 97.6 [degF] 06/20/2018 13:27:00 HEART BEAT 66.0 {beats}/min 06/20/2018 13:27:00 RESPIRATION RATE 18.0 /min 06/20/2018 13:27:00 INTRAVASCULAR SYSTOLIC 122.0 mm[Hg] 06/20/2018 13:27:00 INTRAVASCULAR DIASTOLIC 64.0 mm[Hg] 06/20/2018 13:27:00 RESPIRATION RATE 18.0 /min 06/20/2018 15:42:46 INTRAVASCULAR SYSTOLIC 111.0 mm[Hg] 06/20/2018 15:42:46 INTRAVASCULAR DIASTOLIC 66.0 mm[Hg] 06/20/2018 15:42:46 BODY TEMPERATURE 97.4 [degF] 06/20/2018 15:42:46 HEART BEAT 69.0 {beats}/min 06/20/2018 15:42:46 BODY TEMPERATURE 98.2 [degF] 06/20/2018 18:00:00 HEART BEAT 82.0 {beats}/min 06/20/2018 18:00:00 RESPIRATION RATE 18.0 /min 06/20/2018 18:00:00 INTRAVASCULAR SYSTOLIC 118.0 mm[Hg] 06/20/2018 18:00:00 INTRAVASCULAR DIASTOLIC 69.0 mm[Hg] 06/20/2018 18:00:00 BODY TEMPERATURE 97.6 [degF] 06/20/2018 22:00:00 HEART BEAT 74.0 {beats}/min 06/20/2018 22:00:00 RESPIRATION RATE 18.0 /min 06/20/2018 22:00:00 INTRAVASCULAR SYSTOLIC 109.0 mm[Hg] 06/20/2018 22:00:00 INTRAVASCULAR DIASTOLIC 70.0 mm[Hg] 06/20/2018 22:00:00 OXYGEN SATURATION 94.0 % 06/21/2018 0:48:00 RESPIRATION RATE 18.0 /min 06/21/2018 0:56:56 INTRAVASCULAR SYSTOLIC 133.0 mm[Hg] 06/21/2018 0:56:56 INTRAVASCULAR DIASTOLIC 76.0 mm[Hg] 06/21/2018 0:56:56 BODY TEMPERATURE 98.7 [degF] 06/21/2018 0:56:56 HEART BEAT 69.0 {beats}/min 06/21/2018 0:56:56 RESPIRATION RATE 18.0 /min 06/21/2018 7:32:00 INTRAVASCULAR SYSTOLIC 129.0 mm[Hg] 06/21/2018 7:32:00 INTRAVASCULAR DIASTOLIC 84.0 mm[Hg] 06/21/2018 7:32:00 BODY TEMPERATURE 97.6 [degF] 06/21/2018 7:32:00 HEART BEAT 68.0 {beats}/min 06/21/2018 7:32:00 INTRAVASCULAR SYSTOLIC 129.0 mm[Hg] 06/21/2018 12:32:15 INTRAVASCULAR DIASTOLIC 66.0 mm[Hg] 06/21/2018 12:32:15 HEART BEAT 65.0 {beats}/min 06/21/2018 12:32:15 RESPIRATION RATE 18.0 /min 06/21/2018 20:47:01 INTRAVASCULAR SYSTOLIC 126.0 mm[Hg] 06/21/2018 20:47:01 INTRAVASCULAR DIASTOLIC 68.0 mm[Hg] 06/21/2018 20:47:01 BODY TEMPERATURE 97.9 [degF] 06/21/2018 20:47:01 HEART BEAT 69.0 {beats}/min 06/21/2018 20:47:01 OXYGEN SATURATION 97.0 % 06/22/2018 0:12:00 RESPIRATION RATE 18.0 /min 06/22/2018 0:23:10 INTRAVASCULAR SYSTOLIC 124.0 mm[Hg] 06/22/2018 0:23:10 INTRAVASCULAR DIASTOLIC 67.0 mm[Hg] 06/22/2018 0:23:10 BODY TEMPERATURE 98.3 [degF] 06/22/2018 0:23:10 HEART BEAT 68.0 {beats}/min 06/22/2018 0:23:10 INTRAVASCULAR SYSTOLIC 138.0 mm[Hg] 06/22/2018 6:47:35 INTRAVASCULAR DIASTOLIC 65.0 mm[Hg] 06/22/2018 6:47:35 HEART BEAT 71.0 {beats}/min 06/22/2018 6:47:35 RESPIRATION RATE 18.0 /min 06/22/2018 13:21:39 INTRAVASCULAR SYSTOLIC 117.0 mm[Hg] 06/22/2018 13:21:39 INTRAVASCULAR DIASTOLIC 82.0 mm[Hg] 06/22/2018 13:21:39 BODY TEMPERATURE 97.8 [degF] 06/22/2018 13:21:39 HEART BEAT 70.0 {beats}/min 06/22/2018 13:21:39 RESPIRATION RATE 18.0 /min 06/22/2018 17:47:06 INTRAVASCULAR SYSTOLIC 112.0 mm[Hg] 06/22/2018 17:47:06 INTRAVASCULAR DIASTOLIC 80.0 mm[Hg] 06/22/2018 17:47:06 BODY TEMPERATURE 97.7 [degF] 06/22/2018 17:47:06 HEART BEAT 66.0 {beats}/min 06/22/2018 17:47:06 RESPIRATION RATE 18.0 /min 06/23/2018 3:24:01 INTRAVASCULAR SYSTOLIC 127.0 mm[Hg] 06/23/2018 3:24:01 INTRAVASCULAR DIASTOLIC 63.0 mm[Hg] 06/23/2018 3:24:01 BODY TEMPERATURE 97.9 [degF] 06/23/2018 3:24:01 HEART BEAT 63.0 {beats}/min 06/23/2018 3:24:01 OXYGEN SATURATION 97.0 % 06/23/2018 4:06:00 INTRAVASCULAR SYSTOLIC 123.0 mm[Hg] 06/23/2018 7:23:48 INTRAVASCULAR DIASTOLIC 81.0 mm[Hg] 06/23/2018 7:23:48 HEART BEAT 77.0 {beats}/min 06/23/2018 7:23:48 RESPIRATION RATE 18.0 /min 06/23/2018 12:17:08 BODY TEMPERATURE 97.3 [degF] 06/23/2018 12:17:08 RESPIRATION RATE 18.0 /min 06/23/2018 17:18:05 INTRAVASCULAR SYSTOLIC 114.0 mm[Hg] 06/23/2018 17:18:05 INTRAVASCULAR DIASTOLIC 73.0 mm[Hg] 06/23/2018 17:18:05 BODY TEMPERATURE 97.6 [degF] 06/23/2018 17:18:05 HEART BEAT 65.0 {beats}/min 06/23/2018 17:18:05 RESPIRATION RATE 18.0 /min 06/24/2018 3:45:16 INTRAVASCULAR SYSTOLIC 138.0 mm[Hg] 06/24/2018 3:45:16 INTRAVASCULAR DIASTOLIC 82.0 mm[Hg] 06/24/2018 3:45:16 BODY TEMPERATURE 97.9 [degF] 06/24/2018 3:45:16 HEART BEAT 65.0 {beats}/min 06/24/2018 3:45:16 OXYGEN SATURATION 96.0 % 06/24/2018 4:52:00 INTRAVASCULAR SYSTOLIC 146.0 mm[Hg] 06/24/2018 6:08:36 INTRAVASCULAR DIASTOLIC 91.0 mm[Hg] 06/24/2018 6:08:36 HEART BEAT 64.0 {beats}/min 06/24/2018 6:08:36 RESPIRATION RATE 18.0 /min 06/24/2018 9:08:00 BODY TEMPERATURE 97.6 [degF] 06/24/2018 9:08:00 RESPIRATION RATE 18.0 /min 06/24/2018 14:24:28 INTRAVASCULAR SYSTOLIC 113.0 mm[Hg] 06/24/2018 14:24:28 INTRAVASCULAR DIASTOLIC 84.0 mm[Hg] 06/24/2018 14:24:28 BODY TEMPERATURE 97.9 [degF] 06/24/2018 14:24:28 HEART BEAT 75.0 {beats}/min 06/24/2018 14:24:28 BODY TEMPERATURE 98.3 [degF] 06/24/2018 16:09:09 BODY TEMPERATURE 98.1 [degF] 06/24/2018 20:17:20 OXYGEN SATURATION 95.0 % 06/25/2018 0:32:00 BODY TEMPERATURE 98.3 [degF] 06/25/2018 0:39:03 RESPIRATION RATE 18.0 /min 06/25/2018 0:39:32 INTRAVASCULAR SYSTOLIC 120.0 mm[Hg] 06/25/2018 0:39:32 INTRAVASCULAR DIASTOLIC 74.0 mm[Hg] 06/25/2018 0:39:32 BODY TEMPERATURE 98.3 [degF] 06/25/2018 0:39:32 HEART BEAT 63.0 {beats}/min 06/25/2018 0:39:32 BODY TEMPERATURE 97.4 [degF] 06/25/2018 4:20:44 INTRAVASCULAR SYSTOLIC 131.0 mm[Hg] 06/25/2018 6:06:56 INTRAVASCULAR DIASTOLIC 82.0 mm[Hg] 06/25/2018 6:06:56 HEART BEAT 72.0 {beats}/min 06/25/2018 6:06:56 BODY TEMPERATURE 97.4 [degF] 06/25/2018 7:19:54 RESPIRATION RATE 18.0 /min 06/25/2018 7:20:06 BODY TEMPERATURE 97.6 [degF] 06/25/2018 7:20:06 BODY TEMPERATURE 97.4 [degF] 06/25/2018 11:07:58 RESPIRATION RATE 18.0 /min 06/25/2018 16:22:54 INTRAVASCULAR SYSTOLIC 124.0 mm[Hg] 06/25/2018 16:22:54 INTRAVASCULAR DIASTOLIC 76.0 mm[Hg] 06/25/2018 16:22:54 BODY TEMPERATURE 98.1 [degF] 06/25/2018 16:22:54 HEART BEAT 79.0 {beats}/min 06/25/2018 16:22:54 OXYGEN SATURATION 95.0 % 06/26/2018 0:17:00 RESPIRATION RATE 18.0 /min 06/26/2018 0:30:26 INTRAVASCULAR SYSTOLIC 117.0 mm[Hg] 06/26/2018 0:30:26 INTRAVASCULAR DIASTOLIC 70.0 mm[Hg] 06/26/2018 0:30:26 BODY TEMPERATURE 97.8 [degF] 06/26/2018 0:30:26 HEART BEAT 69.0 {beats}/min 06/26/2018 0:30:26 INTRAVASCULAR SYSTOLIC 111.0 mm[Hg] 06/26/2018 6:46:48 INTRAVASCULAR DIASTOLIC 65.0 mm[Hg] 06/26/2018 6:46:48 HEART BEAT 70.0 {beats}/min 06/26/2018 6:46:48 RESPIRATION RATE 18.0 /min 06/26/2018 7:48:03 BODY TEMPERATURE 97.6 [degF] 06/26/2018 7:48:03 BODY WEIGHT (MEASURED) 139.8 [lb_av] 06/26/2018 10:49:00 RESPIRATION RATE 18.0 /min 06/26/2018 22:10:35 INTRAVASCULAR SYSTOLIC 124.0 mm[Hg] 06/26/2018 22:10:35 INTRAVASCULAR DIASTOLIC 74.0 mm[Hg] 06/26/2018 22:10:35 BODY TEMPERATURE 97.6 [degF] 06/26/2018 22:10:35 HEART BEAT 71.0 {beats}/min 06/26/2018 22:10:35 RESPIRATION RATE 16.0 /min 06/27/2018 4:08:39 INTRAVASCULAR SYSTOLIC 135.0 mm[Hg] 06/27/2018 4:08:39 INTRAVASCULAR DIASTOLIC 78.0 mm[Hg] 06/27/2018 4:08:39 BODY TEMPERATURE 97.9 [degF] 06/27/2018 4:08:39 HEART BEAT 72.0 {beats}/min 06/27/2018 4:08:39 OXYGEN SATURATION 97.0 % 06/27/2018 4:13:00 INTRAVASCULAR SYSTOLIC 143.0 mm[Hg] 06/27/2018 7:08:23 INTRAVASCULAR DIASTOLIC 87.0 mm[Hg] 06/27/2018 7:08:23 HEART BEAT 73.0 {beats}/min 06/27/2018 7:08:23 RESPIRATION RATE 18.0 /min 06/27/2018 8:11:06 INTRAVASCULAR SYSTOLIC 143.0 mm[Hg] 06/27/2018 8:11:06 INTRAVASCULAR DIASTOLIC 87.0 mm[Hg] 06/27/2018 8:11:06 BODY TEMPERATURE 97.9 [degF] 06/27/2018 8:11:06 HEART BEAT 73.0 {beats}/min 06/27/2018 8:11:06 RESPIRATION RATE 18.0 /min 06/27/2018 23:26:29 INTRAVASCULAR SYSTOLIC 124.0 mm[Hg] 06/27/2018 23:26:29 INTRAVASCULAR DIASTOLIC 74.0 mm[Hg] 06/27/2018 23:26:29 BODY TEMPERATURE 97.6 [degF] 06/27/2018 23:26:29 HEART BEAT 74.0 {beats}/min 06/27/2018 23:26:29 RESPIRATION RATE 18.0 /min 06/28/2018 6:30:01 INTRAVASCULAR SYSTOLIC 125.0 mm[Hg] 06/28/2018 6:30:01 INTRAVASCULAR DIASTOLIC 72.0 mm[Hg] 06/28/2018 6:30:01 BODY TEMPERATURE 98.1 [degF] 06/28/2018 6:30:01 HEART BEAT 68.0 {beats}/min 06/28/2018 6:30:01 OXYGEN SATURATION 94.0 % 06/28/2018 6:46:00 INTRAVASCULAR SYSTOLIC 129.0 mm[Hg] 06/28/2018 7:31:01 INTRAVASCULAR DIASTOLIC 86.0 mm[Hg] 06/28/2018 7:31:01 HEART BEAT 73.0 {beats}/min 06/28/2018 7:31:01 RESPIRATION RATE 16.0 /min 06/28/2018 8:57:32 Immunizations Vaccine Date Status Reason Influenza, seasonal, injectable 06/24/2018 14:00:00 Completed Influenza, seasonal, injectable 06/18/2018 Refused Vaccine Unavailable pneumococcal polysaccharide vaccine, 23 valent 06/24/2018 Refused Resident Refused tuberculin skin test; purified protein derivative solution, intradermal 06/14/2018 21:00:00 Completed Social History Smoking Status Start Date End Date Unknown if ever smoked 06/28/2018 19:30:10
[2019-06-19] MEDS ORDERED: SODIUM CHLORIDE 0.9% 1000ML 1,000 ML IV ONE (08:00)
[2019-06-19] MEDS ORDERED: METOPROLOL TARTRATE INJ 1 MG/ML VIAL IV ONE (08:00)
--- NOTE | 2019-06-19 08:10 | NUR ---
STRAIGHT CATH INSERTED FOR UA VIA ASEPTIC TECHNIQUE PER MD ORDERS; URINE OUTPUT APPROX 300 CC; UA COLLECTED AND SENT TO LAB
[2019-06-19 08:44] LABS: BASOPHILS # (AUTO) 0.1 (0.0-0.1); BASOPHILS % 0.5 % (0.0-1.0); EOSINOPHILS # (AUTO) 0.3 (0.0-0.4); EOSINOPHILS % 2.3 % (0.0-6.0); HEMATOCRIT 39.3 % (34.2-44.1); HEMOGLOBIN 13.2 g/dL (12.0-16.0); LYMPHOCYTES # (AUTO) 1.8 (1.0-3.2); LYMPHOCYTES % 14.6 % (18.0-39.1); MEAN CORPUSCULAR HEMOGLOBIN 31.2 pg (28-32); MEAN CORPUSCULAR HGB CONC 33.6 g/dL (31-35); MEAN CORPUSCULAR VOLUME 92.9 fL (81-99); MONOCYTES # (AUTO) 1.1 (0.2-0.8); NEUTROPHILS % 73.1 % (38.7-80.0); PLATELET COUNT 177 x10e3/uL (140-360); RED BLOOD COUNT 4.23 x10e6/uL (3.6-5.1); RED CELL DISTRIBUTION WIDTH 13.2 % (11.7-14.4)
[2019-06-19 09:03] LABS: ALANINE AMINOTRANSFERASE 32 IU/L (0-55); ALBUMIN 2.7 g/dL (3.5-5.0); ALBUMIN/GLOBULIN RATIO 0.6 (0.8-2.0); ALKALINE PHOSPHATASE 138 IU/L (40-150); ANION GAP 11.6 mmol/L (8-16); BLOOD UREA NITROGEN 16 mg/dL (7-26); BUN/CREATININE RATIO 20 (6-25); CARBON DIOXIDE 26 mmol/L (22-29); CHLORIDE 100 mmol/L (98-107); CREATININE, SERUM 0.79 mg/dL (0.57-1.11); EST GLOMERULAR FILTRATION RATE > 60 ML/MIN (60-); GLUCOSE 106 mg/dL (74-118); POTASSIUM 3.6 mmol/L (3.5-5.1); SODIUM 134 mmol/L (136-145)
--- NOTE | 2019-06-19 09:35 | Diagnostic Imaging Report ---
Left hip, 2 views. History: Fall, left hip pain. Findings: The soft tissues are normal. Bone mineralization is normal. There is no evidence of fracture or dislocation. There are no lytic or sclerotic lesions. The joint spaces are within normal limits. IMPRESSION: Normal left hip. Signed by: Marcin Perez on 06/19/2019 9:31 AM
[2019-06-19 09:39] LABS: CLARITY,URINE CLEAR (CLEAR); COLOR,URINE YELLOW (YELLOW); LEUKOCYTE ESTERASE ,URINE NEGATIVE (NEGATIVE)
[2019-06-19 09:40] LABS: BILIRUBIN,URINE NEGATIVE (NEGATIVE); KETONES,URINE NEGATIVE (NEGATIVE); NITRITE,URINE POSITIVE (NEGATIVE); PROTEIN,URINE DIPSTICK TRACE (NEGATIVE); URINE UROBILINOGEN 0.2 mg/dL (0.2 - 1)
[2019-06-19 09:43] LABS: BACTERIA,URINE MODERATE /HPF; EPITHELIAL CELLS,URINE FEW /LPF
[2019-06-19] MEDS ORDERED: ONDANSETRON HCL INJ 2MG/ML 2ML 2 MG/ML VIAL IV PRN (10:00)
[2019-06-19] MEDS ORDERED: SODIUM CHLORIDE FLUSH 10 ML SYR INJ PRN (10:00)
--- NOTE | 2019-06-19 10:29 | NUR ---
pure wick catheter put in place
[2019-06-19] MEDS: SODIUM CHLORIDE 0.9% 1000ML 1,000 ML IV SCH ×2 (10:49→19:59)
[2019-06-19] MEDS: CEFTRIAXONE SOD 1 GM/NS 50 ML 50 ML IV SCH ×2 (10:54→23:00)
--- NOTE | 2019-06-19 16:00 | NUR ---
RCD PT FROM ER BY STRETCHER PT IS ALERT AND ORIENTED VITALS CHECKED PT RESTING ON BED ADMISSION ASSESSMENT DONE FAMILY AT BED SIDE HE SAID SHE FELL DOWN AT HOME ON SUNDAY SHE HAVE BRUISES ON LOWER BACK AND LEFT ELBOW HAD BOWEL MOVEMENT ON YESTURDAY SHE VOIDED IV PATENT AND RUNNING 100 ML /HR INSTRUCTED PT AND FAMILY REGARDING HOSPITAL POLICY AND ROUTINE BED LOW AND LOCKED CALL LIGHT IN REACH
[2019-06-19 17:00] VITALS: BP 135/95
[2019-06-19 17:17] VITALS: BP 152/86
[2019-06-19 17:24] VITALS: BP 135/86
[2019-06-19] MEDS ORDERED: ASPIRIN81 MG PO (17:39)
--- NOTE | 2019-06-19 18:42 | NUR ---
PT RESTING ON BED BED SIDE REPORT GIVEN TO ONCOMING NURSE
[2019-06-19 20:00] VITALS: BP 143/77
[2019-06-19 21:00] VITALS: BP 135/86
[2019-06-20] VITALS (8 sets, daily range): BP systolic 125–168; BP diastolic 80–105
[2019-06-20] MEDS ORDERED: AMLODIPINE BESYLATE 5 MG TAB ONE (01:52)
[2019-06-20] MEDS ORDERED: HYDRALAZINE HCL 25 MG TAB ONE (01:52)
[2019-06-20] MEDS ORDERED: AMLODIPINE BESYLATE 5 MG TAB PO ONE (02:00)
[2019-06-20] MEDS ORDERED: HYDRALAZINE HCL 25 MG TAB PO PRN (02:00)
--- NOTE | 2019-06-20 07:10 | NUR ---
RCD PT AT BED PT IS ALERT AND ORIENTED , ASSESSMENT DONE PT RESTING ON BED NO SIGNS OF ANY DISTRESS NOTED IV PATENT BY SALINE FLUSH BED LOW AND LOCKED CALL LIGHT IN REACH
[2019-06-20] MEDS ORDERED: AMLODIPINE BESYLATE 5 MG TAB PO SCH (09:00)
[2019-06-20] MEDS ORDERED: ACETAMINOPHEN/CODEINE 300MG - 30MG TAB PO PRN (09:45)
[2019-06-20] MEDS: CEFTRIAXONE SOD 1 GM/NS 50 ML 50 ML IV SCH (11:00)
[2019-06-20] MEDS ORDERED: IOPAMIDOL 370 MG/ML 200 ML INFUS..BTL INJ ONE (14:59)
[2019-06-20] MEDS ORDERED: SODIUM CHLORIDE 0.9% 50ML 50 ML ONE (14:59)
--- NOTE | 2019-06-20 15:05 | Diagnostic Imaging Report ---
CT of the abdomen and pelvis History: UTI, Fall Comparison: 11/12/2018 Technique: Multidetector CT scanning of the abdomen and pelvis was performed from the level of the lung bases to the inferior pubic ramus, with intravenous administration of non-ionic contrast and without oral contrast. Scanning during early and delayed phases was performed. DOSE REDUCTION: The examination was performed according to departmental dose-optimization program which includes automated exposure control, adjustment of the mA and/or kV according to patient size and/or use of iterative reconstruction technique. Discussion: The bilateral lung bases demonstrate scattered areas of groundglass opacities which may be secondary to edema, or infectious or inflammatory process. No focal hepatic lesions are identified. The gallbladder is present nondistended. There are radiopaque gallstones. There is no intrahepatic or extrahepatic biliary dilatation. The spleen is within normal limits. The bilateral adrenal glands are unremarkable. There is fatty atrophy of the pancreas. There is no pancreatic ductal dilatation. The kidneys are normal in size and enhance symmetrically. No renal parenchymal lesions are identified. There is no hydroureteronephrosis bilaterally. There are no kidney stones. There is a small hiatal hernia. The stomach, small, and large bowel are nondistended. There is no evidence of obstruction. No signs of appendicitis. There are scattered colonic diverticula without evidence of acute diverticulitis. There is no free intraperitoneal air or ascites. The abdominal aorta is of normal course and caliber. The urinary bladder is unremarkable. The patient is status post hysterectomy. There is lumbar scoliosis. No acute osseous abnormalities are identified. IMPRESSION: 1. No CT evidence of acute abdominal or pelvic pathology. 2. Scattered nonspecific ground glass opacities in the bilateral lung bases which may be secondary to edema, or infectious versus inflammatory process. 3. Moderate diverticulosis without evidence of acute diverticulitis. Signed by: Pierce De Leon MD on 06/20/2019 3:02 PM
--- NOTE | 2019-06-20 16:18 | History and Physical ---
PRIMARY CARE PHYSICIAN: Dr. Oracio Bowling. CHIEF COMPLAINT: Nausea, vomiting, and generalized weakness. HISTORY OF PRESENT ILLNESS: The patient is a 79-year-old female who fell at home with some pain. The patient is doing much better. X-ray of the hip is negative. The patient is moving all extremities. The patient is otherwise without any chest pain or shortness of breath. The patient has some confusion, but otherwise no other complaint. PAST MEDICAL HISTORY: Dementia, hypertension, questionable recurrent urinary tract infection, osteoarthritis, osteoporosis, depression, anxiety disorder, dyslipidemia. PAST SURGICAL HISTORY: Hysterectomy and left ankle surgery. SOCIAL HISTORY: The patient does not smoke or use alcohol. She lives with her family. ALLERGIES: NO KNOWN ALLERGIES. HOME MEDICATIONS: List is reviewed. REVIEW OF SYSTEMS: The patient otherwise had no complaint. PHYSICAL EXAMINATION: VITAL SIGNS: Temperature is 96, blood pressure 139/80, pulse rate is 82, respirations 18. GENERAL: The patient is not in acute distress. She is awake. HEENT: Normocephalic, atraumatic. Anicteric. NECK: Supple grossly. PULMONARY: Diminished breath sounds without any wheezing or rales. CARDIOVASCULAR: S1, S2. Regular rate and rhythm. ABDOMEN: Soft and unremarkable. EXTREMITIES: No cyanosis or edema. NEUROLOGIC: Dementia. Moving all extremities. No focal deficit. LABORATORY DATA: Urinalysis; 2+ blood, positive nitrite, negative leukocyte esterase, bacteria moderate. Chemistry; sodium 134, potassium 3.6, chloride 100, bicarb 26, BUN 16, creatinine 0.8, glucose is 106. WBC 12.3, hemoglobin 13.2, hematocrit 39.3, and platelets 177. IMPRESSION: 1. Urinary tract infection, most likely simple. 2. Baseline dementia. 3. Status post fall. PLAN: Continue with antibiotics. CT abdomen and pelvis with contrast. PT and OT. Pain control. Home medication resumed. Observation and will follow up. MD DEONTE Lacey/WILLI /[id number]
--- NOTE | 2019-06-20 19:08 | NUR ---
PT IS RESTING IN BED. RESPIRATION IS EVEN AND UNLABORED, NO DISTRESS NOTED. BED IN THE LOWEST POSITION, LOCKED, BED ALARM ON, AND CALL LIGHT WITHIN REACH. WILL CONTINUE TO MONITOR.
[2019-06-20] MEDS: ACETAMINOPHEN 325 MG TAB PO PRN (20:28)
[2019-06-20] MEDS ORDERED: SIMVASTATIN 20 MG TAB PO SCH (21:00)
[2019-06-20] MEDS ORDERED: ATENOLOL 50 MG TAB PO SCH (21:00)
[2019-06-21] VITALS (7 sets, daily range): BP systolic 98–120; BP diastolic 57–70
[2019-06-21] MEDS: CEFTRIAXONE SOD 1 GM/NS 50 ML 50 ML IV SCH ×2 (00:29→11:00)
[2019-06-21 05:42] LABS: BASOPHILS # (AUTO) 0.1 (0.0-0.1); BASOPHILS % 0.6 % (0.0-1.0); EOSINOPHILS # (AUTO) 0.1 (0.0-0.4); EOSINOPHILS % 0.9 % (0.0-6.0); HEMATOCRIT 39.5 % (34.2-44.1); HEMOGLOBIN 12.9 g/dL (12.0-16.0); LYMPHOCYTES # (AUTO) 2.7 (1.0-3.2); MEAN CORPUSCULAR HEMOGLOBIN 30.9 pg (28-32); MEAN CORPUSCULAR HGB CONC 32.7 g/dL (31-35); MEAN CORPUSCULAR VOLUME 94.5 fL (81-99); MONOCYTES # (AUTO) 1.2 (0.2-0.8); MONOCYTES % 8.2 % (4.4-11.3); NEUTROPHILS # (AUTO) 10.7 (2.1-6.9); PLATELET COUNT 243 x10e3/uL (140-360); RED BLOOD COUNT 4.18 x10e6/uL (3.6-5.1); RED CELL DISTRIBUTION WIDTH 13.2 % (11.7-14.4)
[2019-06-21] MEDS ORDERED: IRON-VITAMIN-MINERAL CAPSULE PO SCH (06:00)
[2019-06-21 06:02] LABS: ANION GAP 14.4 mmol/L (8-16); BLOOD UREA NITROGEN 16 mg/dL (7-26); BUN/CREATININE RATIO 20 (6-25); CALCIUM 8.8 mg/dL (8.4-10.2); CARBON DIOXIDE 24 mmol/L (22-29); CHLORIDE 98 mmol/L (98-107); CREATININE, SERUM 0.82 mg/dL (0.57-1.11); EST GLOMERULAR FILTRATION RATE > 60 ML/MIN (60-); GLUCOSE 85 mg/dL (74-118); POTASSIUM 3.4 mmol/L (3.5-5.1); SODIUM 133 mmol/L (136-145)
--- NOTE | 2019-06-21 07:10 | NUR ---
RCD PT AT BED PT IS ALERT AND ORIENTED PT RESTING ON BED FAMILY AT BED SIDE IV PATENT BY SALINE FLUSH BED LOW AND LOCKED CALL LIGHT IN REACH
[2019-06-21] MEDS ORDERED: FLUOXETINE HCL 20 MG CAP PO SCH (09:00)
[2019-06-21] MEDS ORDERED: AMLODIPINE BESYLATE 5 MG TAB PO SCH (09:00)
[2019-06-21] MEDS ORDERED: PANTOPRAZOLE SOD 40 MG TABEC PO SCH (09:00)
[2019-06-21] MEDS ORDERED: ASPIRIN 81 MG CHEW TAB PO SCH (09:00)
[2019-06-21] MEDS ORDERED: MEMANTINE 10 MG TAB PO SCH (09:00)
[2019-06-21] MEDS ORDERED: BUPROPION HCL 150 MG TABCR PO SCH (09:00)
--- NOTE | 2019-06-21 14:46 | NUR ---
Met with Dr. Palacios. He stated he will probably discharge pt home today, pending his assessment today.
[2019-06-21] MEDS ORDERED: POTASSIUM CHLORIDE 10MEQ EA PO NR (16:15)
[2019-06-21] MEDS ORDERED: CIPRO500 MG PO (16:44)
--- NOTE | 2019-06-22 04:37 | Discharge Summary ---
The patient is on observation. PRIMARY CARE PHYSICIAN: Dr. Oracio Bowling. FINAL DIAGNOSES: 1. Baseline dementia. 2. Urinary tract infection with Escherichia coli. HOSPITAL COURSE: A 79 years old female came in status post fall. No obvious injury. Hip x-ray is negative. CT scan abdomen and pelvis, there is no sign of acute finding. The patient is stable. She does have Escherichia coli urinary tract infection. The patient was placed on Cipro 500 mg twice a day for 7 days. She will go home today. Follow up with Dr. Oracio Bowling within a week. The patient has no fever. She is doing well. Eating and tolerate all her diet. No complaint of pain. She is ambulatory. MD DEONTE Lacey/WILLI /[id number]
== END 2019-06-21 17:53 | disposition home or self-care (01) ==
LOC: ER 07:41 → INTOOBSV 09:59 → ERHOLD 09:59 → MED/SURG2 16:51
PROVIDERS: ADMIT Internal Medicine; ATTEND Internal Medicine
DX: N39.0 Urinary tract infection, site not specified (principal); S70.02XA Contusion of left hip, initial encounter; W19.XXXA Unspecified fall, initial encounter; Y92.019 Unspecified place in single-family (private) house as the place of occurrence of the external cause; F03.90 Unspecified dementia, unspecified severity, without behavioral disturbance, psychotic disturbance, mood disturbance, and anxiety; I10 Essential (primary) hypertension; M19.90 Unspecified osteoarthritis, unspecified site; M81.0 Age-related osteoporosis without current pathological fracture; F32.9 Major depressive disorder, single episode, unspecified; F41.9 Anxiety disorder, unspecified; E78.5 Hyperlipidemia, unspecified; B96.20 Unspecified Escherichia coli [E. coli] as the cause of diseases classified elsewhere
CPT/HCPCS: 36415 ×2; 73502; 74177; 80048; 80053; 81001; 85025 ×2; 87086; 87186; 93005; 97116; 97161; 97530 ×2; 99284; G0378 ×3; J0696 ×3; J7030; Q9967; S0164